=== PATIENT | female | born 1940 | race Caucasian/White ===

== ENCOUNTER 2021-05-02 12:54 | Inpatient (IN) ==
[2021-05-02 13:30] LABS: Basophils # (auto) 0.01 K/uL (0-0.2); Basophils % (auto) 0.1 %; Eosinophils % (auto) 1.1 %; Hematocrit (blood only) 41.3 % (37-47); Hemoglobin 13.5 g/dL (12.0-16.0); Immature Granulocytes # (auto) 0.02 K/uL (0.00-0.02); Immature Granulocytes % (auto) 0.2 %; Lymphocytes # (auto) 1.54 K/uL (1.2-3.4); Lymphocytes % (auto) 17.1 %; Mean Corpuscular Hgb Conc 32.7 g/dL (32-36); Mean Corpuscular Volume 97.9 fL (80-100); Mean Platelet Volume 9.4 fL (7.4-10.4); Monocytes # (auto) 0.72 K/uL (0.11-0.59); Neutrophils # (auto) 6.59 K/uL (1.4-6.5); Neutrophils % (auto) 73.5 %; Platelet Count 265 K/uL (130-400); RDW Coefficient of Variation 13.7 % (11.5-14.5); RDW Standard Deviation 48.7 fL (36.4-46.3); Red Blood Count 4.22 M/uL (4.2-5.4); White Blood Count 8.98 K/uL (4.8-10.8)
[2021-05-02 13:43] LABS: INR 1.1 (0.9-1.1); Partial Thromboplastin Ratio 0.9; Partial Thromboplastin Time 24.8 Seconds (21.0-31.0)
--- NOTE | 2021-05-02 13:43 | XRay Report ---
XR chest 2V PA/lateral HISTORY: 81 years-old Female Chest Pain acute atypical chest pain COMPARISON: None TECHNIQUE: AP and lateral views of the chest FINDINGS: The cardiac silhouette is enlarged. Calcified plaque of the thoracic aorta. No pneumothorax. Small pl eural effusions. Mild pulmonary vascular congestion. Linear subsegmental left basilar opacities. Dege nerative changes of the shoulders and spine. IMPRESSION: 1. Cardiomegaly with pulmonary vascular congestion and small pleural effusions. 2. Mild linear subsegmental atelectasis/scarring of the lingula. ACT 112: Negative or not required by law. The above report was generated using voice recognition software. It may contain grammatical, syntax o r spelling errors. Electronically signed by: Han Roy M.D. 05/02/2021 1:42 PM
[2021-05-02 13:51] LABS: Alanine Aminotransferase 27 (12-78); Aspartate Aminotransferase 19 U/L (15-37); BUN Creatinine Ratio 22.5 (10-20); Blood Urea Nitrogen 12 mg/dl (7-18); Calcium 8.9 mg/dl (8.5-10.1); Carbon Dioxide 27 mmol/L (21-32); Chloride 105 mmol/L (98-107); Est GFR (African American) 103.4 ml/min; Est GFR (Non-African American) 89.2 ml/min; Glucose 131 mg/dl (70-99); Potassium 3.4 mmol/L (3.5-5.1); Sodium 138 mmol/L (136-145)
[2021-05-02 13:56] LABS: Albumin Globulin Ratio 0.7 (0.9-2); Alkaline Phosphatase 68 U/L (45-117); Bilirubin,Total 0.7 mg/dl (0.2-1); Globulin 4.1 gm/dl (2.5-4.0); Total Protein 7.1 gm/dl (6.4-8.2); Troponin I < 0.015 ng/ml (0-0.045)
[2021-05-02] MEDS ORDERED: MoRPHine SULFATE 4 MG/ML 1 ML CARP\\VIAL IV STA (15:35)
--- NOTE | 2021-05-02 15:52 | Emergency Department Note ---
History of Present Illness General Chief complaint: Cardiac Assessment Stated complaint: Cardiac Assessment, DR MARCOS, ANKLE/FOOT PAIN Time Seen by Provider: 05/02/21 15:26 Source: patient and family Mode of arrival: wheelchair Limitations: no limitations History of Present Illness Provider complaint: Possible gout, chest pain and abnormal EKG Maximum Pain Intensity: 5 Treatments prior to arrival: other This is a 81-year-old female who presents with family at bedside due to concern for chest pain and abnormal EKG when she was in her PCPs office this morning. Patient followed up with her PCP after being seen in the ER over the weekend due to concern for right ankle pain, swelling, and redness. She states they thought it was gout. She states she was started on prednisone as well as cephalexin as an antibiotic in case she also had a concurrent infection such as cellulitis. She denies any prior history of gout. Patient denies any recent change in medications. She states she took her prednisone, antibiotic, as well as several doses of Tylenol yesterday evening into the overnight. She states she awoke this morning with pain in her chest. She states it was constant and nonradiating until around noontime today. She believes it was from all the medications that she took. Patient states due to her significant heart history when she reported this to her PCPs office, they performed an EKG which they read as abnormal and she was advised to come immediately to the emergency room. Patient states she did have a stress test and echo in February of this year by her career services coordinator. She states she is anticoagulated. She denies any recent trauma or injury to the right lower extremity. She states x-rays of the right ankle were performed over the weekend during her ER visit. Pt seen during a time of high acuity and national emergency pandemic while wearing PPE. Home Medications Medication Instructions Recorded Confirmed Type Lactobacillus acidophilus 1,000 mmu cells PO BID 05/02/21 05/02/21 History aspirin 81 mg tablet,delayed 81 mg PO DAILY 05/02/21 05/02/21 History release atorvastatin 40 mg tablet 40 mg PO HS 05/02/21 05/02/21 History calcium carbonate 500 mg-vitamin 1 tab PO DAILY 05/02/21 05/02/21 History D3 3.125 mcg (125 unit) tablet cetirizine 10 mg tablet 10 mg PO PM 05/02/21 05/02/21 History coenzyme Q10 100 mg capsule 200 mg PO PM 05/02/21 05/02/21 History (CoQ-10) esomeprazole magnesium 40 mg 40 mg PO DAILY 05/02/21 05/02/21 History capsule,delayed release furosemide 40 mg tablet 40 mg PO DAILY PRN 05/02/21 05/02/21 History glucosamine-chondroitin 250 mg-200 2 tab PO BIDM 05/02/21 05/02/21 History mg tablet (Osteo Bi-Flex) hydroxyzine HCl 25 mg tablet 25 mg PO HS 05/02/21 05/02/21 History levothyroxine 25 mcg tablet 25 mcg PO DAILY 05/02/21 05/02/21 History melatonin 5 mg tablet 5 mg PO HS 05/02/21 05/02/21 History metoprolol succinate 50 mg 125 mg PO DAILY 05/02/21 05/02/21 History tablet,extended release 24 hr montelukast 10 mg tablet 10 mg PO DAILY 05/02/21 05/02/21 History pramipexole 0.25 mg tablet 0.25 mg PO DAILY 05/02/21 05/02/21 History pramipexole 0.25 mg tablet 0.5 mg PO HS 05/02/21 05/02/21 History rivaroxaban 20 mg tablet (Xarelto) 20 mg PO PM 05/02/21 05/02/21 History sacubitril 24 mg-valsartan 26 mg 1 tab PO BID 05/02/21 05/02/21 History tablet (Entresto) trazodone 150 mg tablet 150 mg PO HS 05/02/21 05/02/21 History venlafaxine 75 mg capsule,extended 75 mg PO DAILY 05/02/21 05/02/21 History release 24 hr vitamins A,C,G-wyoi-ocrbpe 7,160 1 tab PO BID 05/02/21 05/02/21 History unit-113 mg-100 unit tablet (PreserVision AREDS) Allergies Allergy/AdvReac Type Severity Reaction Status Date / Time weed pollen Allergy Intermediate Verified 04/19/21 09:08 Past Med/Surg History Medical History Arthritis Atrial fibrillation CHF (congestive heart failure) FHx: cholecystectomy Hyperlipidemia Hypertension Hypothyroid Surgical History (Updated 05/02/21 @ 17:07 by Jessica Gary PA-C) H/O: hysterectomy History of bilateral knee replacement History of cholecystectomy Stented coronary artery Family History Mother Myocardial infarction Father Myocardial infarction Social History (Updated 05/02/21 @ 18:36 by Jessica Gary PA-C) Smoking Status: Never smoker Hx Alcohol Use: No Hx Substance Use: No Preferred Language: Citizen Of [place] Communication Ability: Effective Personnel Recruiter Required: No Beliefs That Will Affect Care: None marital status: Current Living Situation: Spouse current occupational status: retired How many Children do You have: 2 Other Information That Helps Us Care for You: No Feels Safe at Home: Yes Safety Concerns: Feels Safe At This Time caffeine: No Assistive Devices: None Review of Systems A total of 10 systems reviewed and were otherwise negative All systems reviewed & are unremarkable except as noted in HPI & below Physical Exam Vital Signs Vital Signs - 24 hr 05/02/21 13:03 Temperature 36.7 C Temperature Source Temporal Artery Scan Pulse Rate 117 H Pulse Rhythm Regular Respiratory Rate 24 Respiratory Effort / Characteristics Non-Labored Spontaneous Respiratory Depth Normal Blood Pressure 192/73 H Blood Pressure Mean 112 Pulse Oximetry 93 Oxygen Delivery Method Room Air Sepsis Recent Fever Within 48 Hours No Sepsis New/Unexplained Change in Mental Status No Sepsis Action Taken by Nursing No Action Required GENERAL: alert, well appearing, well nourished, no distress, non-toxic EYE EXAM: normal conjunctiva, PERRL and EOM's grossly intact OROPHARYNX: no exudate, no erythema, lips, buccal mucosa, and tongue normal and mucous membranes are moist NECK: supple, no nuchal rigidity, no adenopathy, non-tender LUNGS: Clear to auscultation. Normal chest wall mechanics, no w/r/r HEART: no murmurs, S1 normal and S2 normal ABDOMEN: abdomen soft, non-tender, normo-active bowel sounds, no masses, no rebound or guarding. BACK: Back is symmetrical on inspection and there is no deformity, no midline tenderness, no CVA tenderness. SKIN: no rashes and no bruising, no petechiae UPPER EXTREMITIES: upper extremities are grossly normal. FROM, nml pulses b/l. LOWER EXTREMITIES: No pitting edema LLE. FROM, nml pulses b/l. Right lower extremity with obvious edema and erythema noted to the right ankle extending into the dorsal aspect of the right foot. Erythema overlying both medial and lateral malleoli. Does not appear circumferential. Pain with palpation and with any attempt at movement of the right ankle. NEURO EXAM: Normal sensorium, cranial nerves II-XII grossly intact, normal speech, no gross weakness of arms, no gross weakness of legs. Gross sensation intact. Course Administered Medications Aspirin (Aspirin 81 Mg Ectab) 81 mg PO DAILY ZOEY Stop: 06/02/21 08:59 Last Admin: 05/03/21 09:53 Dose: 81 mg Documented by: [id number] Atorvastatin Calcium (Atorvastatin 40 Mg Tab) 40 mg PO HS ZOEY Stop: 06/01/21 20:59 Last Admin: 05/02/21 22:36 Dose: 40 mg Documented by: [id number] Cetirizine HCl (Cetirizine Hcl 10 Mg Tablet) 10 mg PO PM ZOEY Stop: 06/01/21 20:59 Last Admin: 05/02/21 22:36 Dose: 10 mg Documented by: [id number] Hydroxyzine HCl (Hydroxyzine Hcl 25 Mg Tab) 25 mg PO HS ZOEY Stop: 06/01/21 20:59 Last Admin: 05/02/21 22:36 Dose: 25 mg Documented by: [id number] Lactobacillus Acidoph/Casei/Rhamnos (Advanced Probiotic 1250 Mg Capsule) 2 cap PO BID ZOEY Stop: 06/01/21 20:59 Last Admin: 05/03/21 09:53 Dose: 2 cap Documented by: [id number] Admin: 05/02/21 23:00 Dose: 2 cap Documented by: [id number] Levothyroxine Sodium (Levothyroxine Sodium 25 Mcg Tablet) 25 mcg PO DAILYBB ZOEY Stop: 06/02/21 06:29 Last Admin: 05/03/21 05:30 Dose: 25 mcg Documented by: [id number] Melatonin (Melatonin 3 Mg Tab) 6 mg PO HS ZOEY Stop: 06/01/21 20:59 Last Admin: 05/02/21 22:37 Dose: 6 mg Documented by: [id number] Metoprolol Succinate (Metoprolol Succ 25mg Ext Rel Tab) 125 mg PO DAILY ZOEY Stop: 06/02/21 08:59 Last Admin: 05/03/21 09:52 Dose: 125 mg Documented by: [id number] Montelukast Sodium (Montelukast Sodium 10 Mg Tablet) 10 mg PO DAILY ZOEY Stop: 06/02/21 08:59 Last Admin: 05/03/21 09:52 Dose: 10 mg Documented by: [id number] Morphine Sulfate (Morphine Sulfate 2 Mg/Ml Carp) 2 mg IV Q3H PRN PRN Reason: Severe Pain Stop: 05/16/21 20:08 Last Admin: 05/03/21 09:48 Dose: 2 mg Documented by: [id number] Admin: 05/03/21 01:34 Dose: 2 mg Documented by: [id number] Admin: 05/02/21 20:17 Dose: 2 mg Documented by: [id number] Multivitamins/Minerals (Calcium 600mg + Vit D 400 Iu Tab) 1 tab PO DAILY ZOEY Stop: 06/02/21 08:59 Last Admin: 05/03/21 09:53 Dose: 1 tab Documented by: [id number] Multivitamins/Minerals (Cerovite Adv Formula Tab) 1 tab PO BID ZOEY Stop: 06/01/21 20:59 Last Admin: 05/03/21 09:53 Dose: 1 tab Documented by: [id number] Admin: 05/02/21 23:01 Dose: 1 tab Documented by: [id number] Pantoprazole Sodium (Pantoprazole 40 Mg Tab) 40 mg PO DAILY ZOEY Stop: 06/02/21 08:59 Last Admin: 05/03/21 09:52 Dose: 40 mg Documented by: [id number] Pramipexole Dihydrochloride (Pramipexole Dihydrochlo 0.25 Mg Tab) 0.25 mg PO DAILY ZOEY Stop: 06/02/21 08:59 Last Admin: 05/03/21 09:52 Dose: 0.25 mg Documented by: [id number] Pramipexole Dihydrochloride (Pramipexole Dihydrochlo 0.5 Mg Tab) 0.5 mg PO HS ZOEY Stop: 06/01/21 20:59 Last Admin: 05/02/21 22:38 Dose: 0.5 mg Documented by: [id number] Rivaroxaban (Rivaroxaban 20 Mg Tab) 20 mg PO PM ZOEY Stop: 06/01/21 20:59 Last Admin: 05/02/21 22:39 Dose: 20 mg Documented by: [id number] Sacubitril/Valsartan (Valsartan/Sacubitril 26/24mg Tab) 1 tab PO BID ZOEY Stop: 06/01/21 20:59 Last Admin: 05/03/21 09:53 Dose: 1 tab Documented by: [id number] Admin: 05/02/21 23:01 Dose: 1 tab Documented by: [id number] Tramadol HCl (Tramadol Hcl 50 Mg Tablet) 25 mg PO Q6H PRN PRN Reason: Pain Stop: 06/02/21 01:23 Last Admin: 05/03/21 03:52 Dose: 25 mg Documented by: [id number] Trazodone HCl (Trazodone Hcl 50 Mg Tab) 150 mg PO HS ZOEY Stop: 06/01/21 20:59 Last Admin: 05/02/21 22:39 Dose: 150 mg Documented by: [id number] Venlafaxine HCl (Venlafaxine Hcl Xr 75 Mg Capxr) 75 mg PO DAILY ZOEY Stop: 06/02/21 08:59 Last Admin: 05/03/21 09:52 Dose: 75 mg Documented by: [id number] Discontinued Medications Colchicine (Colchicine 0.6 Mg Tab) 0.6 mg PO NOW ONE Stop: 05/03/21 10:31 Last Admin: 05/03/21 10:51 Dose: 0.6 mg Documented by: [id number] Furosemide (Furosemide Inj 20 Mg/2 Ml Vial) 10 mg IV ONE ONE Stop: 05/02/21 18:47 Last Admin: 05/02/21 20:14 Dose: 10 mg Documented by: [id number] Metoprolol Succinate (Metoprolol Succ 25mg Ext Rel Tab) 125 mg PO NOW STA Stop: 05/02/21 18:06 Last Admin: 05/02/21 18:34 Dose: 125 mg Documented by: [id number] Morphine Sulfate (Morphine Sulfate 4 Mg/Ml 1 Ml Carp\Vial) 4 mg IV NOW STA Stop: 05/02/21 15:36 Last Admin: 05/02/21 16:19 Dose: 4 mg Documented by: [id number] Potassium Chloride (Potassium Chloride Crtab 20 Meq Tabcr) 40 meq PO NOW STA Stop: 05/02/21 18:09 Last Admin: 05/02/21 18:34 Dose: 40 meq Documented by: [id number] Medical Decision Making Differential Diagnosis Differential diagnoses includes but is not limited to acute coronary syndrome, myocardial infarction, pericarditis, pulmonary embolus, aortic dissection, pneumonia, pneumothorax, musculoskeletal, shingles, esophageal, Fracture, subluxation, dislocation, contusion, ligamentous injury, neurovascular, compartment syndrome, rhabdomyolysis, as well as other pathologies. Medical Records Attestation: I reviewed the patient's medical records. Home Medications Current Medication List: was personally reviewed by me Laboratory Data Attestation: I reviewed the patient's lab results. Result diagrams: 05/03/21 07:42 05/03/21 07:42 Lab Results 05/02/21 05/02/21 05/02/21 Range/Units 13:17 13:17 13:17 WBC 8.98 (4.8-10.8) K/uL RBC 4.22 (4.2-5.4) M/uL Hgb 13.5 (12.0-16.0) g/dL Hct 41.3 (37-47) % MCV 97.9 (80-100) fL MCH 32.0 (25-34) pg MCHC 32.7 (32-36) g/dL RDW Std Deviation 48.7 H (36.4-46.3) fL RDW Coeff of Evelyn 13.7 (11.5-14.5) % Plt Count 265 (130-400) K/uL MPV 9.4 (7.4-10.4) fL Immature Gran % (Auto) 0.2 % Neut % (Auto) 73.5 % Lymph % (Auto) 17.1 % Vernon % (Auto) 8.0 % Eos % (Auto) 1.1 % Baso % (Auto) 0.1 % Neut # (Auto) 6.59 H (1.4-6.5) K/uL Lymph # (Auto) 1.54 (1.2-3.4) K/uL Vernon # (Auto) 0.72 H (0.11-0.59) K/uL Eos # (Auto) 0.10 (0-0.5) K/uL Baso # (Auto) 0.01 (0-0.2) K/uL Immature Gran # (Auto) 0.02 (0.00-0.02) K/uL ESR (0-30) mm/hr PT 11.0 (9.0-12.0) Seconds INR 1.1 (0.9-1.1) APTT 24.8 (21.0-31.0) Seconds PTT Ratio 0.9 Sodium 138 (136-145) mmol/L Potassium 3.4 L (3.5-5.1) mmol/L Chloride 105 (98-107) mmol/L Carbon Dioxide 27 (21-32) mmol/L Anion Gap 6.0 (3-11) BUN 12 (7-18) mg/dl Creatinine 0.55 L (0.6-1.2) mg/dl Est Cr Clr Drug Dosing Not Reportable Est GFR ( Amer) 103.4 ml/min Est GFR (Non-Af Amer) 89.2 ml/min BUN/Creatinine Ratio 22.5 H (10-20) Glucose 131 H (70-99) mg/dl Uric Acid 2.7 (2.6-7.2) mg/dl Calcium 8.9 (8.5-10.1) mg/dl Total Bilirubin 0.7 (0.2-1) mg/dl AST 19 (15-37) U/L ALT 27 (12-78) Alkaline Phosphatase 68 (45-117) U/L Troponin I < 0.015 (0-0.045) ng/ml NT-Pro-B Natriuret Pep 1475 (0-1800) pg/ml Total Protein 7.1 (6.4-8.2) gm/dl Albumin 3.0 L (3.4-5.0) gm/dl Globulin 4.1 H (2.5-4.0) gm/dl Albumin/Globulin Ratio 0.7 L (0.9-2) SARS-CoV-2, RNA, NAAT (NEGATIVE) 05/02/21 05/02/21 Range/Units 13:17 17:13 WBC (4.8-10.8) K/uL RBC (4.2-5.4) M/uL Hgb (12.0-16.0) g/dL Hct (37-47) % MCV (80-100) fL MCH (25-34) pg MCHC (32-36) g/dL RDW Std Deviation (36.4-46.3) fL RDW Coeff of Evelyn (11.5-14.5) % Plt Count (130-400) K/uL MPV (7.4-10.4) fL Immature Gran % (Auto) % Neut % (Auto) % Lymph % (Auto) % Vernon % (Auto) % Eos % (Auto) % Baso % (Auto) % Neut # (Auto) (1.4-6.5) K/uL Lymph # (Auto) (1.2-3.4) K/uL Vernon # (Auto) (0.11-0.59) K/uL Eos # (Auto) (0-0.5) K/uL Baso # (Auto) (0-0.2) K/uL Immature Gran # (Auto) (0.00-0.02) K/uL ESR 60 H (0-30) mm/hr PT (9.0-12.0) Seconds INR (0.9-1.1) APTT (21.0-31.0) Seconds PTT Ratio Sodium (136-145) mmol/L Potassium (3.5-5.1) mmol/L Chloride (98-107) mmol/L Carbon Dioxide (21-32) mmol/L Anion Gap (3-11) BUN (7-18) mg/dl Creatinine (0.6-1.2) mg/dl Est Cr Clr Drug Dosing Est GFR ( Amer) ml/min Est GFR (Non-Af Amer) ml/min BUN/Creatinine Ratio (10-20) Glucose (70-99) mg/dl Uric Acid (2.6-7.2) mg/dl Calcium (8.5-10.1) mg/dl Total Bilirubin (0.2-1) mg/dl AST (15-37) U/L ALT (12-78) Alkaline Phosphatase (45-117) U/L Troponin I (0-0.045) ng/ml NT-Pro-B Natriuret Pep (0-1800) pg/ml Total Protein (6.4-8.2) gm/dl Albumin (3.4-5.0) gm/dl Globulin (2.5-4.0) gm/dl Albumin/Globulin Ratio (0.9-2) SARS-CoV-2, RNA, NAAT NEGATIVE (NEGATIVE) Imaging Data Radiologist's Impression: Chest X-Ray 05/02/21 13:09 XR chest 2V PA/lateral HISTORY: 81 years-old Female Chest Pain acute atypical chest pain COMPARISON: None TECHNIQUE: AP and lateral views of the chest FINDINGS: The cardiac silhouette is enlarged. Calcified plaque of the thoracic aorta. No pneumothorax. Small pleural effusions. Mild pulmonary vascular congestion. Linear subsegmental left basilar opacities. Degenerative changes of the shoulders and spine. IMPRESSION: 1. Cardiomegaly with pulmonary vascular congestion and small pleural effusions. 2. Mild linear subsegmental atelectasis/scarring of the lingula. ACT 112: Negative or not required by law. The above report was generated using voice recognition software. It may contain grammatical, syntax or spelling errors. Electronically signed by: Han Roy M.D. 05/02/2021 1:42 PM MDM Narrative This is a 81-year-old lady who presents due to concern for chest pain and right ankle pain. She states she has had ankle pain for several days and was seen in the emergency room in [place] over the weekend with concern for gout. She states she was started on prednisone and also given an antibiotic in case of any evolving cellulitis. She states x-rays were negative at that time. She denies any prior history of gout. States overnight into this morning she did have chest pain which she felt was due to medications that she took. Labs have been drawn and sent and started per protocol as there was no available bed for the patient when she initially arrived. These were resulted in what I spoke with the patient and she was pulled into a triage room for additional evaluation. Due to concern for chest pain in the setting of significant cardiac history and current anticoagulation despite negative troponin and negative EKG as well as worsening pain and edema at the right ankle despite treatment for possible gout, case was discussed with the hospitalist for additional evaluation and management. Patient was still in the waiting room at the time of our discussion for admission as we work towards placing her in an ER bed for the hospitalist to conduct additional evaluation. [facility] did send copies of recent cardiology reports verifying her report of an echo and a stress test in February of this year. We were awaiting additional reports of her ER evaluation in lieu of reordering repeat imaging. I do not suspect septic arthritis. Patient denies any trauma. Patient had no chest pain at the time of my evaluation of her, although chest x-ray does suggest possible evolving pulmonary edema. Patient's exam not consistent with acute volume overload, she denied any difficulty breathing. An order was placed for continuous cardiac monitoring. The monitor shows a rate of _80_ with _normal sinus__ rhythm. Impression & Plan Chest pain, Acute right ankle pain Discharge Plan Visit Data Chief Complaint: Cardiac Assessment Stated Complaint: Cardiac Assessment, DR MARCOS, ANKLE/FOOT PAIN ED Provider: Carol Briceño Discharge Problem: Chest pain, Acute right ankle pain Patient Disposition: Admitted As Inpatient Discharge Instructions Interventions: ED Discharge Assessment Last Done: 05/03/21 00:35 Discharge Problem: Chest pain Qualifiers: Chest pain type: unspecified Qualified Code(s): R07.9 - Chest pain, unspecified
[2021-05-02 16:18] LABS: NT Pro B Type Natriuretic Pept 1475 pg/ml (0-1800); Uric Acid 2.7 mg/dl (2.6-7.2)
[2021-05-02] MEDS ORDERED: METOPROLOL SUCC 25MG EXT REL TAB PO STA (18:05)
[2021-05-02] MEDS ORDERED: POTASSIUM CHLORIDE CRTAB 20 MEQ TABCR PO STA (18:08)
[2021-05-02] MEDS ORDERED: FUROSEMIDE INJ 20 MG/2 ML VIAL IV ONE (18:46)
--- NOTE | 2021-05-02 18:46 | History & Physical Report ---
Date of Service May 02, 2021 Assessment & Plan (1) Right foot pain: (2) Chest pain: Plan: This is a 81-year-old female who has significant past medical history of CAD with history of stenting, persistent atrial fibrillation, RLS, insomnia, CHF, HTN, HLD, hypothyroidism who presents to ED after complaining of right foot pain x3 days and chest pain x1 day. Right foot pain/swelling and redness x 3 days Was seen and eval at [place] [facility] - awaiting records, dx with GOUT and prescribed prednisone, indomethacin and keflex for ? cellulitis pt w/o improvement obtain CT R Foot/ankle RLE venous doppler await results of imaging before further tx, will d/c prednisone and indomethacin at this time given no improvement No evidence of infection - but again wait for current imaging - hold on antibiotics at this time elevate lower ext, ice PT/OT PRN analgesia Chest Pain CAD w/ hx of stent Afib CHF Cp reported after taking 5 extra strength tylenol, likely esophageal spasm, vs gerd, vs anx cycle troponins for completeness obtain echocardiogram records requested from OSH unknown baseline EF continue metoprolol, Entresto, ASA, atorvastatin, Xarelto Currently patient tachycardic, likely secondary to missed dose of oral metoprolol, give Toprol 125mg x 1 now CXR with evidence of pulm vasc congestion possible in setting of HTN Urgency - give Lasix x 1 now Insomnia continue melatonin, trazodone, hydroxyzine RLS continue mirapex DVT ppx: Xarelto Dispo: med tele; can likely downgrade to med/surg when cardiac source of CP ruled out PCP: Dr. Reese, of [place] FULL CODE PT was seen and examined in collaboration with Dr. Valencia, please see addendum The chart was completed utilizing [employer] Speech voice recognition software. Grammatical errors, random word insertions, pronoun errors, and incomplete sentences are an occasional consequence of this system due to software limitations, ambient noise, and hardware issues. Any formal questions or concerns about the content, text, or information contained within the body of this dictation should be directly addressed to the provider for clarification. History of Present Illness Chief Complaint: R foot pain x 3 days; CP x 1 day. Primary Care Provider: Jose Angel Reese M.D. This is a 81-year-old female who has significant past medical history of CAD with history of stenting, persistent atrial fibrillation, RLS, insomnia, CHF, HTN, HLD, hypothyroidism who presents to ED after complaining of right foot pain x3 days and chest pain x1 day. Of significance patient was seen in [place] [facility] over the weekend and records are still pending from this visit. She states that she presented to ED due to right foot pain. She was diagnosed with acute gout, prescribed prednisone, indomethacin and Keflex. She has not noticed any improvement in regards to pain of her right foot, is having inability to walk and denies any improvement in redness or swelling. Typically she ambulates without assist device at baseline, but is currently having difficulty getting out of chair due to pain. Today pain was so severe that she took 5 extra strength Tylenol. After taking the Tylenol she felt, "funny in her chest," and had a burning sensation. She called PCP in regards to the chest sensation and was told to go to ER for further evaluation. She was brought to ER with her daughter who is currently at bedside. Daughter does help patient take her medications. She did not take any medications today. She denies any fever, chills, sweats, lightheadedness, dizziness, shortness of breath, edie chest pain, nausea, vomiting, abdominal pain, change in bowel or urinary habits. Her appetite and weight has been stable. She is prescribed Lasix to take as needed but has not currently required. She states she typically takes it twice a week. In ED she remained hemodynamically stable. Her blood pressure was significantly elevated likely due to not taking meds and pain. Her CBC and CMP was generally unremarkable. Her chest x-ray revealed cardiomegaly with pulmonary vascular congestion small pleural effusions. She did receive IV morphine in ED which improved pain. She is currently chest pain-free and has been since arrival. Allergies Allergy/AdvReac Type Severity Reaction Status Date / Time weed pollen Allergy Intermediate Verified 04/19/21 09:08 Home Medications Medication Instructions Recorded Confirmed Type Lactobacillus acidophilus 1,000 mmu cells PO BID 05/02/21 05/02/21 History aspirin 81 mg tablet,delayed 81 mg PO DAILY 05/02/21 05/02/21 History release atorvastatin 40 mg tablet 40 mg PO HS 05/02/21 05/02/21 History calcium carbonate 500 mg-vitamin 1 tab PO DAILY 05/02/21 05/02/21 History D3 3.125 mcg (125 unit) tablet cetirizine 10 mg tablet 10 mg PO PM 05/02/21 05/02/21 History coenzyme Q10 100 mg capsule 200 mg PO PM 05/02/21 05/02/21 History (CoQ-10) esomeprazole magnesium 40 mg 40 mg PO DAILY 05/02/21 05/02/21 History capsule,delayed release furosemide 40 mg tablet 40 mg PO DAILY PRN 05/02/21 05/02/21 History glucosamine-chondroitin 250 mg-200 2 tab PO BIDM 05/02/21 05/02/21 History mg tablet (Osteo Bi-Flex) hydroxyzine HCl 25 mg tablet 25 mg PO HS 05/02/21 05/02/21 History levothyroxine 25 mcg tablet 25 mcg PO DAILY 05/02/21 05/02/21 History melatonin 5 mg tablet 5 mg PO HS 05/02/21 05/02/21 History metoprolol succinate 50 mg 125 mg PO DAILY 05/02/21 05/02/21 History tablet,extended release 24 hr montelukast 10 mg tablet 10 mg PO DAILY 05/02/21 05/02/21 History pramipexole 0.25 mg tablet 0.25 mg PO DAILY 05/02/21 05/02/21 History pramipexole 0.25 mg tablet 0.5 mg PO HS 05/02/21 05/02/21 History rivaroxaban 20 mg tablet (Xarelto) 20 mg PO PM 05/02/21 05/02/21 History sacubitril 24 mg-valsartan 26 mg 1 tab PO BID 05/02/21 05/02/21 History tablet (Entresto) trazodone 150 mg tablet 150 mg PO HS 05/02/21 05/02/21 History venlafaxine 75 mg capsule,extended 75 mg PO DAILY 05/02/21 05/02/21 History release 24 hr vitamins A,C,J-vbgd-tcazwz 7,160 1 tab PO BID 05/02/21 05/02/21 History unit-113 mg-100 unit tablet (PreserVision AREDS) Past Med/Surg History Medical History Arthritis Atrial fibrillation CHF (congestive heart failure) FHx: cholecystectomy Hyperlipidemia Hypertension Hypothyroid Surgical History (Updated 05/02/21 @ 17:07 by Jessica Gary PA-C) H/O: hysterectomy History of bilateral knee replacement History of cholecystectomy Stented coronary artery Family History Mother Myocardial infarction Father Myocardial infarction Social History (Updated 05/02/21 @ 18:36 by Jessica Gary PA-C) Smoking Status: Never smoker Hx Alcohol Use: No Hx Substance Use: No Preferred Language: Arabic Communication Ability: Effective 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 marital status: Current Living Situation: Spouse current occupational status: retired How many Children do You have: 4 Feels Safe at Home: Yes caffeine: No Review of Systems Review of Systems: All systems reviewed & are unremarkable except as noted in HPI & below Physical Exam Physical Exam: Please refer to attending addendum for physical exam findings Results & Data Results & Data ([facility]) Vital Signs (Past 12 Hours) Vital Signs Temp Pulse Pulse Resp BP BP Pulse Ox 05/02/21 18:18 37.4 C 122 H 26 H 177/74 H 94 05/02/21 13:03 36.7 C 117 H 24 192/73 H 93 Diagnostic Findings Chest X-Ray 05/02/21 13:09 XR chest 2V PA/lateral HISTORY: 81 years-old Female Chest Pain acute atypical chest pain COMPARISON: None TECHNIQUE: AP and lateral views of the chest FINDINGS: The cardiac silhouette is enlarged. Calcified plaque of the thoracic aorta. No pneumothorax. Small pleural effusions. Mild pulmonary vascular congestion. Linear subsegmental left basilar opacities. Degenerative changes of the shoulders and spine. IMPRESSION: 1. Cardiomegaly with pulmonary vascular congestion and small pleural effusions. 2. Mild linear subsegmental atelectasis/scarring of the lingula. ACT 112: Negative or not required by law. The above report was generated using voice recognition software. It may contain grammatical, syntax or spelling errors. Electronically signed by: Han Roy M.D. 05/02/2021 1:42 PM Medications Administered Medication List Discontinued Medications Metoprolol Succinate (Metoprolol Succ 25mg Ext Rel Tab) 125 mg PO NOW STA Stop: 05/02/21 18:06 Last Admin: 05/02/21 18:34 Dose: 125 mg Documented by: [id number] Morphine Sulfate (Morphine Sulfate 4 Mg/Ml 1 Ml Carp\\Vial) 4 mg IV NOW STA Stop: 05/02/21 15:36 Last Admin: 05/02/21 16:19 Dose: 4 mg Documented by: [id number] Potassium Chloride (Potassium Chloride Crtab 20 Meq Tabcr) 40 meq PO NOW STA Stop: 05/02/21 18:09 Last Admin: 05/02/21 18:34 Dose: 40 meq Documented by: [id number] ECG Rate (beats per minute): 115 Rhythm: atrial fibrillation COVID-19 Results Results COVID-19 Adm Lab Results: RBC 4.22 M/uL (4.2-5.4) 05/02/21 WBC 8.98 K/uL (4.8-10.8) 05/02/21 Hgb 13.5 g/dL (12.0-16.0) 05/02/21 Hct 41.3 % (37-47) 05/02/21 Plt Count 265 K/uL (130-400) 05/02/21 Neutrophils (%) (Auto) 73.5 % 05/02/21 Lymphocytes (%) (Auto) 17.1 % 05/02/21 Monocytes # (Auto) 0.72 K/uL (0.11-0.59) H 05/02/21 Eosinophils # (Auto) 0.10 K/uL (0-0.5) 05/02/21 Immature Granulocyte % (Auto) 0.2 % 05/02/21 Neutrophils # (Auto) 6.59 K/uL (1.4-6.5) H 05/02/21 Lymphocytes # (Auto) 1.54 K/uL (1.2-3.4) 05/02/21 Monocytes # (Auto) 0.72 K/uL (0.11-0.59) H 05/02/21 Eosinophils # (Auto) 0.10 K/uL (0-0.5) 05/02/21 Basophils # (Auto) 0.01 K/uL (0-0.2) 05/02/21 Immature Granulocyte # (Auto) 0.02 K/uL (0.00-0.02) 05/02/21 Na 138 mmol/L (136-145) 05/02/21 K 3.4 mmol/L (3.5-5.1) L 05/02/21 Cl 105 mmol/L (98-107) 05/02/21 CO2 27 mmol/L (21-32) 05/02/21 Anion Gap 6.0 (3-11) 05/02/21 BUN 12 mg/dl (7-18) 05/02/21 Creatinine 0.55 mg/dl (0.6-1.2) L 05/02/21 BUN/Creatinine Ratio 22.5 (10-20) H 05/02/21 Glucose Level 131 mg/dl (70-99) H 05/02/21 Ca 8.9 mg/dl (8.5-10.1) 05/02/21 Total Bilirubin 0.7 mg/dl (0.2-1) 05/02/21 AST/SGOT 19 U/L (15-37) 05/02/21 ALT/SGPT 27 (12-78) 05/02/21 Alkaline Phosphatase 68 U/L (45-117) 05/02/21 Total Protein 7.1 gm/dl (6.4-8.2) 05/02/21 Albumin 3.0 gm/dl (3.4-5.0) L 05/02/21 Globulin 4.1 gm/dl (2.5-4.0) H 05/02/21 Albumin/Globulin Ratio 0.7 (0.9-2) L 05/02/21 Troponin I < 0.015 ng/ml (0-0.045) 05/02/21 JF-Uxr-A-Type Natriuretic Pep 1475 pg/ml (0-1800) 05/02/21 CRP 17.60 mg/dl (0-0.29) H 05/02/21 PTT 24.8 Seconds (21.0-31.0) 05/02/21 INR 1.1 (0.9-1.1) 05/02/21 SARS-CoV-2, RNA, NAAT NEGATIVE (NEGATIVE) 05/02/21 Chest X-Ray 05/02/21 Code Status & VTE Plan Code Status FULL CODE VTE Prophylaxis Plan VTE Prophylaxis will be ordered: No Supervising Physician Co-Signing Physician Notes Pt is a 81 y/o F with hx of possible HFrEF, Afib on xarelto, Insomnia, HTN, CAD s/p stent, HLD, R TKR admitted for chest pain, and R ankle pain/swelling Exam: Mild distress due to pain Lungs: CTA, no wheezing or crackles Cardiac: normal S1/S2, no murmur Abd: Soft, ND, NT MSK: no swelling on the L leg, diffuse swelling of the R foot, ankle and distal leg; it is warm and TTP Psych: AAOx3 A/P: R ankle/Foot/distal leg swelling and pain: -pt has taken 3 days of prednisone w/o any improvement -will get CT ankle to r/o any fracture - RLE doppler -not suspecting septic arthritis - for now will do pain management with prn morphine - PT/OT referral Chest pain: -trop neg -CXR showed pulm edema ---- will do IV Lasix 10mg today ---- echo HTN: -will start the pt on home meds for now Agree with Jessica Gary PA-C
--- NOTE | 2021-05-02 19:04 | Ultrasound Report ---
RIGHT LOWER EXTREMITY VENOUS DOPPLER HISTORY: Right leg edema COMPARISON STUDY: None. FINDINGS: There is normal compressibility, flow, and augmentation within the right lower extremity de ep venous system. IMPRESSION: No DVT within the right lower extremity ACT 112: Negative or not required by law. Electronically signed by: Patrice Lockett M.D. 05/02/2021 7:03 PM
[2021-05-02 19:05] LABS: Troponin I < 0.015 ng/ml (0-0.045)
[2021-05-02] MEDS ORDERED: ACETAMINOPHEN 325 MG TAB PO PRN (20:09)
[2021-05-02] MEDS ORDERED: oxyCODONE HCL IR 5 MG TAB (IMMEDIATE RELEASE) PO PRN (20:09)
[2021-05-02] MEDS ORDERED: POLYETHYLENE (MIRALAX) 17 GM PACK PO PRN (20:09)
[2021-05-02] MEDS ORDERED: ALUMINUM/MAGNESIUM SUSP 30 ML UDC PO PRN (20:09)
[2021-05-02] MEDS ORDERED: ONDANSETRON INJ 2 MG/ML 2 ML VIAL IV PRN (20:09)
[2021-05-02] MEDS ORDERED: MAGNESIUM HYDROXIDE SUSP 30 ML UDC PO PRN (20:09)
--- NOTE | 2021-05-02 20:16 | CT Scan Report ---
RIGHT ANKLE CT, RIGHT FOOT CT CT DOSE: 255.60 mGy.cm HISTORY: Right ankle and foot pain, edema, redness TECHNIQUE: Multiaxial CT images of the right ankle and right foot were performed and reformatted in t he sagittal and coronal plane without the use of contrast. A dose lowering technique was utilized ad ana maría to the principles of ALARA. COMPARISON: None. FINDINGS: Extensive subcutaneous edema seen throughout the right ankle and right foot. No loculated f luid collections on this noncontrast study to suggest an abscess. Vascular calcifications are noted. The Achilles, flexor, extensor, and peroneal tendons appear grossly intact by CT. No acute fracture o r dislocation within the right ankle or right foot. Mild degenerative changes seen within the tibiota lar joint and throughout the majority of the foot. No destructive changes to suggest an osteomyelitis . IMPRESSION: 1. Extensive subcutaneous edema seen throughout the right ankle and foot. 2. No fracture or dislocation. 3. No evidence for osteomyelitis. 4. Mild osteoarthritis. ACT 112: Negative or not required by law. Electronically signed by: Patrice Lockett M.D. 05/02/2021 8:15 PM
[2021-05-02] MEDS: MoRPHine SULFATE 2 MG/ML CARP IV PRN (20:17)
[2021-05-02] MEDS ORDERED: NON-FORMULARY MEDICATION (Coenzyme Q10 [Coq-10] 100 mg Capsule) PO SCH (21:00)
[2021-05-02] MEDS: CETIRIZINE HCL 10 MG TABLET PO SCH (22:36)
[2021-05-02] MEDS: ATORVASTATIN 40 MG TAB PO SCH (22:36)
[2021-05-02] MEDS: hydrOXYzine HCl 25 MG TAB PO SCH (22:36)
[2021-05-02] MEDS: MELATONIN 3 MG TAB PO SCH (22:37)
[2021-05-02] MEDS: PRAMIPEXOLE DIHYDROCHLO 0.5 MG TAB PO SCH (22:38)
[2021-05-02] MEDS: traZODone HCL 50 MG TAB PO SCH (22:39)
[2021-05-02] MEDS: RIVAROXABAN 20 MG TAB PO SCH (22:39)
[2021-05-02] MEDS: ADVANCED PROBIOTIC 1250 MG CAPSULE PO SCH (23:00)
[2021-05-02] MEDS: CEROVITE ADV FORMULA TAB PO SCH (23:01)
[2021-05-02] MEDS: VALSARTAN/SACUBITRIL 26/24MG TAB PO SCH (23:01)
[2021-05-03] MEDS: MoRPHine SULFATE 2 MG/ML CARP IV PRN ×3 (01:34→16:41)
[2021-05-03] MEDS: traMADol HCL 50 MG TABLET PO PRN ×2 (03:52→21:09)
[2021-05-03] MEDS: LEVOTHYROXINE SODIUM 25 MCG TABLET PO SCH (05:30)
[2021-05-03 08:21] LABS: Basophils # (auto) 0.02 K/uL (0-0.2); Basophils % (auto) 0.2 %; Eosinophils # (auto) 0.07 K/uL (0-0.5); Eosinophils % (auto) 0.7 %; Hematocrit (blood only) 37.4 % (37-47); Hemoglobin 12.3 g/dL (12.0-16.0); Immature Granulocytes # (auto) 0.02 K/uL (0.00-0.02); Immature Granulocytes % (auto) 0.2 %; Lymphocytes # (auto) 1.24 K/uL (1.2-3.4); Lymphocytes % (auto) 11.8 %; Mean Corpuscular Hemoglobin 31.7 pg (25-34); Mean Corpuscular Hgb Conc 32.9 g/dL (32-36); Mean Corpuscular Volume 96.4 fL (80-100); Mean Platelet Volume 9.4 fL (7.4-10.4); Monocytes # (auto) 0.97 K/uL (0.11-0.59); Monocytes % (auto) 9.2 %; Neutrophils # (auto) 8.18 K/uL (1.4-6.5); Neutrophils % (auto) 77.9 %; Platelet Count 231 K/uL (130-400); RDW Coefficient of Variation 13.8 % (11.5-14.5); RDW Standard Deviation 48.7 fL (36.4-46.3); Red Blood Count 3.88 M/uL (4.2-5.4)
[2021-05-03 08:57] LABS: Albumin Globulin Ratio 0.6 (0.9-2); Albumin Level 2.4 gm/dl (3.4-5.0); BUN Creatinine Ratio 21.8 (10-20); Calcium 8.1 mg/dl (8.5-10.1); Creatinine Clr Calc Pharmacy 99.4 ml/min; Est GFR (African American) 109.7 ml/min; Est GFR (Non-African American) 94.6 ml/min; Globulin 3.9 gm/dl (2.5-4.0); Total Protein 6.3 gm/dl (6.4-8.2)
[2021-05-03] MEDS: METOPROLOL SUCC 25MG EXT REL TAB PO SCH (09:52)
[2021-05-03] MEDS: PRAMIPEXOLE DIHYDROCHLO 0.25 MG TAB PO SCH (09:52)
[2021-05-03] MEDS: PANTOprazole 40 MG TAB PO SCH (09:52)
[2021-05-03] MEDS: VENLAFAXINE HCL XR 75 MG CAPXR PO SCH (09:52)
[2021-05-03] MEDS: MONTELUKAST SODIUM 10 MG TABLET PO SCH (09:52)
[2021-05-03] MEDS: CALCIUM 600MG + VIT D 400 IU TAB PO SCH (09:53)
[2021-05-03] MEDS: ASPIRIN 81 MG ECTAB PO SCH (09:53)
[2021-05-03] MEDS: CEROVITE ADV FORMULA TAB PO SCH ×2 (09:53→21:11)
[2021-05-03] MEDS: ADVANCED PROBIOTIC 1250 MG CAPSULE PO SCH ×2 (09:53→21:10)
[2021-05-03] MEDS: VALSARTAN/SACUBITRIL 26/24MG TAB PO SCH ×2 (09:53→21:12)
[2021-05-03] MEDS ORDERED: COLCHICINE 0.6 MG TAB PO ONE ×2 (10:30→13:08)
--- NOTE | 2021-05-03 14:36 | Hospitalist Progress Note ---
Date of Service May 03, 2021 Assessment & Plan (1) Right foot pain: Plan: Likely gout and to rule out septic arthritis Right foot pain/swelling and redness x 3 days Was seen and eval at [place] [facility] - awaiting records, dx with GOUT and prescribed prednisone, indomethacin and keflex for ? cellulitis pt w/o improvement obtain CT R Foot/ankle-soft tissue swelling without any abscess or osteomyelitis RLE venous doppler-negative for any thrombosis No evidence of infection - but again wait for current imaging - hold on antibiotics at this time ESR is high at 60 and CRP is high at 17 Will start colchicine smaller doses given cardiac history and on beta-roxi. Cannot use any NSAID is as on Xarelto. Steroid will be used if suspicion for septic arthritis is ruled out Orthopedic has been consulted for further evaluation She has been getting better on colchicine (2) Chest pain: Plan: This is a 81-year-old female who has significant past medical history of CAD with history of stenting, persistent atrial fibrillation, RLS, insomnia, CHF, HTN, HLD, hypothyroidism who presents to ED after complaining of right foot pain x3 days and chest pain x1 day. Chest Pain CAD w/ hx of stent Afib CHF Cp reported after taking 5 extra strength tylenol, likely esophageal spasm, vs gerd, vs anx Cycle troponins for completeness-remain unremarkable EKG unremarkable and echo is Continue metoprolol, Entresto, ASA, atorvastatin, Xarelto CXR with evidence of pulm vasc congestion possible in setting of HTN Urgency - give Lasix x 1 now Denies any more chest pain and/or palpitation Insomnia continue melatonin, trazodone, hydroxyzine RLS continue mirapex DVT ppx: Xarelto Dispo: med tele; can likely downgrade to med/surg when cardiac source of CP ruled out PCP: Dr. Reese, of [place] FULL CODE Admission and Anticipated Discharge Date Admission Date: May 02, 2021 Subjective 05/03/2021 The patient was seen and examined in medical telemetry unit She has been complaining of right ankle pain with swelling and redness for the last 3 days She woke up with pain and the condition has been getting worse Denies any history of trauma and denies any fever and/or chills. No nausea and or vomiting Review of Systems Review of Systems: All systems reviewed and are unremarkable except as mentioned below Musculoskeletal: Severe pain involving the right ankle with swelling, redness and tenderness Physical Exam Physical Exam: Lying in bed with discomfort secondary to right foot pain Constitutional: well developed, well nourished, + ill appearing and average body habitus Eyes: PERRL, conjunctivae normal, anicteric sclerae ENMT: external ear and nose normal, oropharynx normal Neck: trachea midline, no thyromegaly Respiratory: no respiratory distress Auscultation: lungs clear to auscultation bilaterally Cardiovascular: Rate/Rhythm: regular rate and regular rhythm; not tachycardic Heart Sounds: normal S1 and normal S2; no murmur Extremities: + edema (Right foot and ankle) Gastrointestinal (Abdomen): Inspection/Auscultation: normal bowel sounds; abdomen not distended Percussion/Palpation: abdomen soft; abdomen nontender Musculoskeletal: Ankle: + ankle abnormal to inspection (Right ankle is swollen, redness, increased local temperature and tenderness) and + joint line tenderness (ankle) (Any movement is extremely painful) Neurologic: Alert, awake and oriented x3. No focal sensory and motor deficit appreciated Lymphatic: no cervical or axillary lymphadenopathy Results & Data Results & Data ([facility]) Vital Signs (Past 12 Hours) Vital Signs Temp Pulse Resp BP Pulse Ox 05/03/21 12:11 36.7 C 85 22 141/60 H 92 05/03/21 08:09 37.8 C H 96 H 17 139/71 90 05/03/21 04:00 36.6 C 90 18 166/67 H 94 Laboratory Results Short CBC 05/03/21 Range/Units 07:42 WBC 10.50 (4.8-10.8) K/uL Hgb 12.3 (12.0-16.0) g/dL Hct 37.4 (37-47) % Plt Count 231 (130-400) K/uL BMP 05/03/21 07:42 Sodium 138 Potassium 4.0 D Chloride 104 Carbon Dioxide 26 BUN 10 Creatinine 0.46 L Glucose 121 H Calcium 8.1 L Cardiac Enzymes 05/02/21 05/03/21 Range/Units 18:30 00:15 Troponin I < 0.015 < 0.015 (0-0.045) ng/ml Liver Function 05/03/21 Range/Units 07:42 Total Bilirubin 1.0 (0.2-1) mg/dl AST 22 (15-37) U/L ALT 27 (12-78) Alkaline Phosphatase 63 (45-117) U/L Albumin 2.4 L (3.4-5.0) gm/dl Medications Administered Current Inpatient Medications Acetaminophen (Acetaminophen 325 Mg Tab) 650 mg PO Q4H PRN PRN Reason: Pain or Fever Stop: 06/01/21 20:08 Al Hydrox/Mg Hydrox/Simethicone (Aluminum/Magnesium Susp 30 Ml Udc) 15 ml PO Q4H PRN PRN Reason: Dyspepsia Stop: 06/01/21 20:08 Aspirin (Aspirin 81 Mg Ectab) 81 mg PO DAILY [facility] Stop: 06/02/21 08:59 Last Admin: 05/03/21 09:53 Dose: 81 mg Documented by: Atorvastatin Calcium (Atorvastatin 40 Mg Tab) 40 mg PO HS [facility] Stop: 06/01/21 20:59 Last Admin: 05/02/21 22:36 Dose: 40 mg Documented by: Cetirizine HCl (Cetirizine Hcl 10 Mg Tablet) 10 mg PO PM [facility]OEY Stop: 06/01/21 20:59 Last Admin: 05/02/21 22:36 Dose: 10 mg Documented by: Hydroxyzine HCl (Hydroxyzine Hcl 25 Mg Tab) 25 mg PO HS [facility] Stop: 06/01/21 20:59 Last Admin: 05/02/21 22:36 Dose: 25 mg Documented by: Lactobacillus Acidoph/Casei/Rhamnos (Advanced Probiotic 1250 Mg Capsule) 2 cap PO BID [facility]OEY Stop: 06/01/21 20:59 Last Admin: 05/03/21 09:53 Dose: 2 cap Documented by: Levothyroxine Sodium (Levothyroxine Sodium 25 Mcg Tablet) 25 mcg PO DAILYBB [facility]OE[facility] Stop: 06/02/21 06:29 Last Admin: 05/03/21 05:30 Dose: 25 mcg Documented by: Magnesium Hydroxide (Magnesium Hydroxide Susp 30 Ml Udc) 30 ml PO Q12H PRN PRN Reason: Constipation Stop: 06/01/21 20:08 Melatonin (Melatonin 3 Mg Tab) 6 mg PO HS [facility] Stop: 06/01/21 20:59 Last Admin: 05/02/21 22:37 Dose: 6 mg Documented by: Metoprolol Succinate (Metoprolol Succ 25mg Ext Rel Tab) 125 mg PO DAILY [facility] Stop: 06/02/21 08:59 Last Admin: 05/03/21 09:52 Dose: 125 mg Documented by: Montelukast Sodium (Montelukast Sodium 10 Mg Tablet) 10 mg PO DAILY [facility] Stop: 06/02/21 08:59 Last Admin: 05/03/21 09:52 Dose: 10 mg Documented by: Morphine Sulfate (Morphine Sulfate 2 Mg/Ml Carp) 2 mg IV Q3H PRN PRN Reason: Severe Pain Stop: 05/16/21 20:08 Last Admin: 05/03/21 09:48 Dose: 2 mg Documented by: Multivitamins/Minerals (Calcium 600mg + Vit D 400 Iu Tab) 1 tab PO DAILY [facility]OEY Stop: 06/02/21 08:59 Last Admin: 05/03/21 09:53 Dose: 1 tab Documented by: Multivitamins/Minerals (Cerovite Adv Formula Tab) 1 tab PO BID [facility]OE[facility] Stop: 06/01/21 20:59 Last Admin: 05/03/21 09:53 Dose: 1 tab Documented by: Ondansetron HCl (Ondansetron Inj 2 Mg/Ml 2 Ml Vial) 4 mg IV Q6H PRN PRN Reason: Nausea Stop: 06/01/21 20:08 Pantoprazole Sodium (Pantoprazole 40 Mg Tab) 40 mg PO DAILY [facility] Stop: 06/02/21 08:59 Last Admin: 05/03/21 09:52 Dose: 40 mg Documented by: Polyethylene Glycol (Polyethylene (Miralax) 17 Gm Pack) 17 gm PO DAILY PRN PRN Reason: Constipation Stop: 06/01/21 20:08 Pramipexole Dihydrochloride (Pramipexole Dihydrochlo 0.25 Mg Tab) 0.25 mg PO DAILY [facility] Stop: 06/02/21 08:59 Last Admin: 05/03/21 09:52 Dose: 0.25 mg Documented by: Pramipexole Dihydrochloride (Pramipexole Dihydrochlo 0.5 Mg Tab) 0.5 mg PO HS [facility] Stop: 06/01/21 20:59 Last Admin: 05/02/21 22:38 Dose: 0.5 mg Documented by: Rivaroxaban (Rivaroxaban 20 Mg Tab) 20 mg PO PM [facility] Stop: 06/01/21 20:59 Last Admin: 05/02/21 22:39 Dose: 20 mg Documented by: Sacubitril/Valsartan (Valsartan/Sacubitril 26/24mg Tab) 1 tab PO BID [facility] Stop: 06/01/21 20:59 Last Admin: 05/03/21 09:53 Dose: 1 tab Documented by: Tramadol HCl (Tramadol Hcl 50 Mg Tablet) 25 mg PO Q6H PRN PRN Reason: Pain Stop: 06/02/21 01:23 Last Admin: 05/03/21 03:52 Dose: 25 mg Documented by: Trazodone HCl (Trazodone Hcl 50 Mg Tab) 150 mg PO HS [facility] Stop: 06/01/21 20:59 Last Admin: 05/02/21 22:39 Dose: 150 mg Documented by: Venlafaxine HCl (Venlafaxine Hcl Xr 75 Mg Capxr) 75 mg PO DAILY [facility] Stop: 06/02/21 08:59 Last Admin: 05/03/21 09:52 Dose: 75 mg Documented by: (1) Chest pain Chest pain type: unspecified Qualified Code(s): R07.9 - Chest pain, unspecified
--- NOTE | 2021-05-03 15:44 | Orthopedic Consultation ---
Date of Consultation May 03, 2021 Assessment & Plan (1) Acute right ankle pain: X-rays reviewed by myself. Plain films not showing any signs of osteomyelitis but noting diffuse soft tissue swelling. CT scan also noting diffuse soft tissue swelling around the foot and ankle with no evidence of osteomyelitis. No mention of any increased fluid collection in the joint. As sensitive as she is over the areas of erythema, I am thinking this is possibly a cellulitis with question of joint involvement. She was only on her indomethacin and prednisone for 2 to 3 days with no significant improvement. Uric acid yesterday was 2.7. ESR and CRP are elevated. I will discuss the case with Dr. Lopez. I will also order an MRI with contrast to rule out septic joint/tendinous involvement. If notable fluid collection in the joint, she may need an aspiration of the ankle joint. History of Present Illness Reason for Consultation: Right ankle pain Attending Physician: Destiny Santana MD History of Present Illness He 11-year-old white female who was admitted by [facility] hospitalist service for right ankle pain for 3 days. Patient is accompanied by her daughter who both give an account of what she has been going through. She apparently began having pain on in the right ankle. She was having increasing difficulty in ambulating and went to [facility] emergency room where she was diagnosed with gout. She was given prescriptions for prednisone, indomethacin, and Keflex for questionable cellulitis. Her daughter states that she has been taking his medications for only 3 days. She noticed no significant improvement and continued to have the moderate to severe pain in the right ankle with erythema. She finally came into the hospital here at [facility] and was admitted by the hospitalist service. She denies any nausea or vomiting, fevers, chills. Of note, her daughter states that her mother had a infection of her left lower extremity in the recent past that was MRSA. She has also had a urinary tract infection within the last 2 months as well. We have been asked to see her for her right ankle pain. Allergies Allergy/AdvReac Type Severity Reaction Status Date / Time weed pollen Allergy Intermediate Verified 04/19/21 09:08 Home Medications Medication Instructions Recorded Confirmed Type Lactobacillus acidophilus 1,000 mmu cells PO BID 05/02/21 05/02/21 History aspirin 81 mg tablet,delayed 81 mg PO DAILY 05/02/21 05/02/21 History release atorvastatin 40 mg tablet 40 mg PO HS 05/02/21 05/02/21 History calcium carbonate 500 mg-vitamin 1 tab PO DAILY 05/02/21 05/02/21 History D3 3.125 mcg (125 unit) tablet cetirizine 10 mg tablet 10 mg PO PM 05/02/21 05/02/21 History coenzyme Q10 100 mg capsule 200 mg PO PM 05/02/21 05/02/21 History (CoQ-10) esomeprazole magnesium 40 mg 40 mg PO DAILY 05/02/21 05/02/21 History capsule,delayed release furosemide 40 mg tablet 40 mg PO DAILY PRN 05/02/21 05/02/21 History glucosamine-chondroitin 250 mg-200 2 tab PO BIDM 05/02/21 05/02/21 History mg tablet (Osteo Bi-Flex) hydroxyzine HCl 25 mg tablet 25 mg PO HS 05/02/21 05/02/21 History levothyroxine 25 mcg tablet 25 mcg PO DAILY 05/02/21 05/02/21 History melatonin 5 mg tablet 5 mg PO HS 05/02/21 05/02/21 History metoprolol succinate 50 mg 125 mg PO DAILY 05/02/21 05/02/21 History tablet,extended release 24 hr montelukast 10 mg tablet 10 mg PO DAILY 05/02/21 05/02/21 History pramipexole 0.25 mg tablet 0.25 mg PO DAILY 05/02/21 05/02/21 History pramipexole 0.25 mg tablet 0.5 mg PO HS 05/02/21 05/02/21 History rivaroxaban 20 mg tablet (Xarelto) 20 mg PO PM 05/02/21 05/02/21 History sacubitril 24 mg-valsartan 26 mg 1 tab PO BID 05/02/21 05/02/21 History tablet (Entresto) trazodone 150 mg tablet 150 mg PO HS 05/02/21 05/02/21 History venlafaxine 75 mg capsule,extended 75 mg PO DAILY 05/02/21 05/02/21 History release 24 hr vitamins A,C,L-svoq-mapmfy 7,160 1 tab PO BID 05/02/21 05/02/21 History unit-113 mg-100 unit tablet (PreserVision AREDS) Patient History Medical History Arthritis Atrial fibrillation CHF (congestive heart failure) FHx: cholecystectomy Hyperlipidemia Hypertension Hypothyroid Surgical History H/O: hysterectomy History of bilateral knee replacement History of cholecystectomy Stented coronary artery Family History Mother Myocardial infarction Father Myocardial infarction Social History Smoking Status: Never smoker Hx Alcohol Use: No Hx Substance Use: No Preferred Language: Faroese Communication Ability: Effective 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 She is alert and oriented x3. Pleasant cooperative. No acute distress. On examination of her right foot, I remove the red sock that she has on which is troublesome for her because it causes her discomfort. This reveals a moderately swollen foot over the dorsum of the foot and the ankle. She has moderate erythema over the lateral malleolus as well as the medial malleolus. Very mild erythema over the anterior portion of the ankle. She is extremely sensitive to light touch over these areas. She has pain on palpation over the dorsum of the foot as well near the ankle but not so much over the metacarpals distally. The swelling does go down to her toes somewhat compared to the left foot which is normal. I cannot appreciate a dorsalis pedis pulse secondary to swelling however she does have good capillary refill of the toes that is less than 2 seconds. Sensation is intact. She states that she might have a little bit of decreased sensation compared to the left toes but not much. She is able to move her toes with active range of motion but not full range of motion. If she tries to do full range of motion of her toes it causes discomfort in her foot and ankle. I can take her through passive dorsiflexion of the great toe which causes her some mild pain in the dorsum of her foot and ankle. She has no pain on palpation of the lower extremity below the knee until you start getting down to just proximal to the ankle. Calves are soft and nontender. She is able to take her ankle through gentle range of motion but her range of motion is limited. Results & Data ([facility]) Vital Signs (Past 12 Hours) Vital Signs Temp Pulse Resp BP Pulse Ox 05/03/21 12:11 36.7 C 85 22 141/60 H 92 05/03/21 08:09 37.8 C H 96 H 17 139/71 90 05/03/21 04:00 36.6 C 90 18 166/67 H 94 Laboratory Results Laboratory Results WBC 10.50 K/uL (4.8-10.8) 05/03/21 07:42 RBC 3.88 M/uL (4.2-5.4) L 05/03/21 07:42 Hgb 12.3 g/dL (12.0-16.0) 05/03/21 07:42 Hct 37.4 % (37-47) 05/03/21 07:42 MCV 96.4 fL (80-100) 05/03/21 07:42 MCH 31.7 pg (25-34) 05/03/21 07:42 MCHC 32.9 g/dL (32-36) 05/03/21 07:42 RDW Std Deviation 48.7 fL (36.4-46.3) H 05/03/21 07:42 RDW Coeff of Evelyn 13.8 % (11.5-14.5) 05/03/21 07:42 Plt Count 231 K/uL (130-400) 05/03/21 07:42 MPV 9.4 fL (7.4-10.4) 05/03/21 07:42 Immature Gran % (Auto) 0.2 % 05/03/21 07:42 Neut % (Auto) 77.9 % 05/03/21 07:42 Lymph % (Auto) 11.8 % 05/03/21 07:42 Stark % (Auto) 9.2 % 05/03/21 07:42 Eos % (Auto) 0.7 % 05/03/21 07:42 Baso % (Auto) 0.2 % 05/03/21 07:42 Neut # (Auto) 8.18 K/uL (1.4-6.5) H 05/03/21 07:42 Lymph # (Auto) 1.24 K/uL (1.2-3.4) 05/03/21 07:42 Stark # (Auto) 0.97 K/uL (0.11-0.59) H 05/03/21 07:42 Eos # (Auto) 0.07 K/uL (0-0.5) 05/03/21 07:42 Baso # (Auto) 0.02 K/uL (0-0.2) 05/03/21 07:42 Immature Gran # (Auto) 0.02 K/uL (0.00-0.02) 05/03/21 07:42 ESR 60 mm/hr (0-30) H 05/02/21 13:17 PT 11.0 Seconds (9.0-12.0) 05/02/21 13:17 INR 1.1 (0.9-1.1) 05/02/21 13:17 APTT 24.8 Seconds (21.0-31.0) 05/02/21 13:17 PTT Ratio 0.9 05/02/21 13:17 Sodium 138 mmol/L (136-145) 05/03/21 07:42 Potassium 4.0 mmol/L (3.5-5.1) D 05/03/21 07:42 Chloride 104 mmol/L (98-107) 05/03/21 07:42 Carbon Dioxide 26 mmol/L (21-32) 05/03/21 07:42 Anion Gap 8.0 (3-11) 05/03/21 07:42 BUN 10 mg/dl (7-18) 05/03/21 07:42 Creatinine 0.46 mg/dl (0.6-1.2) L 05/03/21 07:42 Est Cr Clr Drug Dosing 99.4 ml/min 05/03/21 07:42 Est GFR ( Amer) 109.7 ml/min 05/03/21 07:42 Est GFR (Non-Af Amer) 94.6 ml/min 05/03/21 07:42 BUN/Creatinine Ratio 21.8 (10-20) H 05/03/21 07:42 Glucose 121 mg/dl (70-99) H 05/03/21 07:42 Uric Acid 2.7 mg/dl (2.6-7.2) 05/02/21 13:17 Calcium 8.1 mg/dl (8.5-10.1) L 05/03/21 07:42 Total Bilirubin 1.0 mg/dl (0.2-1) 05/03/21 07:42 AST 22 U/L (15-37) 05/03/21 07:42 ALT 27 (12-78) 05/03/21 07:42 Alkaline Phosphatase 63 U/L (45-117) 05/03/21 07:42 Troponin I < 0.015 ng/ml (0-0.045) 05/03/21 00:15 C-Reactive Protein 17.60 mg/dl (0-0.29) H 05/02/21 18:30 NT-Pro-B Natriuret Pep 1475 pg/ml (0-1800) 05/02/21 13:17 Total Protein 6.3 gm/dl (6.4-8.2) L 05/03/21 07:42 Albumin 2.4 gm/dl (3.4-5.0) L 05/03/21 07:42 Globulin 3.9 gm/dl (2.5-4.0) 05/03/21 07:42 Albumin/Globulin Ratio 0.6 (0.9-2) L 05/03/21 07:42 SARS-CoV-2, RNA, NAAT NEGATIVE (NEGATIVE) 05/02/21 17:[address] 05/02/21 17:[address], RIGHT FOOT CT CT DOSE: 255.60 mGy.cm HISTORY: Right ankle and foot pain, edema, redness TECHNIQUE: Multiaxial CT images of the right ankle and right foot were performed and reformatted in the sagittal and coronal plane without the use of contrast. A dose lowering technique was utilized adhering to the principles of ALARA. COMPARISON: None. FINDINGS: Extensive subcutaneous edema seen throughout the right ankle and right foot. No loculated fluid collections on this noncontrast study to suggest an abscess. Vascular calcifications are noted. The Achilles, flexor, extensor, and peroneal tendons appear grossly intact by CT. No acute fracture or dislocation within the right ankle or right foot. Mild degenerative changes seen within the tibiotalar joint and throughout the majority of the foot. No destructive changes to suggest an osteomyelitis. IMPRESSION: 1. Extensive subcutaneous edema seen throughout the right ankle and foot. 2. No fracture or dislocation. 3. No evidence for osteomyelitis. 4. Mild osteoarthritis. ACT 112: Negative or not required by law. Electronically signed by: Patrice Lockett M.D. 05/02/2021 8:[address] 05/02/21 17:[address], RIGHT FOOT CT CT DOSE: 255.60 mGy.cm HISTORY: Right ankle and foot pain, edema, redness TECHNIQUE: Multiaxial CT images of the right ankle and right foot were performed and reformatted in the sagittal and coronal plane without the use of contrast. A dose lowering technique was utilized adhering to the principles of ALARA. COMPARISON: None. FINDINGS: Extensive subcutaneous edema seen throughout the right ankle and right foot. No loculated fluid collections on this noncontrast study to suggest an abscess. Vascular calcifications are noted. The Achilles, flexor, extensor, and peroneal tendons appear grossly intact by CT. No acute fracture or dislocation within the right ankle or right foot. Mild degenerative changes seen within the tibiotalar joint and throughout the majority of the foot. No destructive changes to suggest an osteomyelitis. IMPRESSION: 1. Extensive subcutaneous edema seen throughout the right ankle and foot. 2. No fracture or dislocation. 3. No evidence for osteomyelitis. 4. Mild osteoarthritis. ACT 112: Negative or not required by law. Electronically signed by: Patrice Lockett M.D. 05/02/2021 8:15 PM Venous Doppler Study 05/02/21 17:50 RIGHT LOWER EXTREMITY VENOUS DOPPLER HISTORY: Right leg edema COMPARISON STUDY: None. FINDINGS: There is normal compressibility, flow, and augmentation within the right lower extremity deep venous system. IMPRESSION: No DVT within the right lower extremity ACT 112: Negative or not required by law. Electronically signed by: Patrice Lockett M.D. 05/02/2021 7:03 PM
--- NOTE | 2021-05-03 16:39 | Electrocardiogram Report ---
Test Reason : Blood Pressure : / mmHG Vent. Rate : 115 BPM Atrial Rate : 136 BPM P-R Int : 000 ms QRS Dur : 088 ms QT Int : 300 ms P-R-T Axes : 000 106 -52 degrees QTc Int : 415 ms Poor data quality, interpretation may be adversely affected Atrial fibrillation Rightward axis Septal infarct , age undetermined Abnormal ECG When compared with ECG of 28-NOV-1999 12:42, Atrial fibrillation is now Present Inferolateral T wave abnormality is now present Confirmed by Wayne Hernandez ([id number]) on 05/03/2021 4:38:45 PM Referred By: Confirmed By:Wayne Hernandez
[2021-05-03] MEDS ORDERED: GADOBUTROL 65ML VIAL IV ONE (18:14)
--- NOTE | 2021-05-03 18:43 | Magnetic Resonance Report ---
MR ankle RT wo/w con CLINICAL HISTORY: r/o septic joint/tenosynovitis TECHNIQUE: Multisequence, multiplanar MR images of the right ankle were obtained with and without c ontrast. COMPARISON: None available at the time of this dictation. FINDINGS: Extensive soft tissue edema is seen compatible with history of cellulitis. Diffuse enhancement is not ed in the soft tissues as well. Tendon sheath fluid and and peritendinous enhancement is seen most pr ominently in the flexor hallucis longus and flexor digitorum longus tendons. No marrow edema or erosi on is seen to suggest osteomyelitis. There is an ankle joint effusion with synovial enhancement noted . Ligaments and tendons appear intact. IMPRESSION: 1. Diffuse cellulitis with tenosynovitis most prominent in the flexor hallucis longus and flexor dig itorum longus tendons. 2. Synovial enhancement in a joint effusion about the tibiotalar joint concerning for septic arthrit is. 3. No evidence of edie osteomyelitis. ACT 112: Negative or not required by law. Electronically signed by: Audie Brooke M.D. 05/03/2021 6:42 PM
[2021-05-03] MEDS: PRAMIPEXOLE DIHYDROCHLO 0.5 MG TAB PO SCH (21:10)
[2021-05-03] MEDS: RIVAROXABAN 20 MG TAB PO SCH (21:11)
[2021-05-03] MEDS: ATORVASTATIN 40 MG TAB PO SCH (21:12)
[2021-05-03] MEDS: CETIRIZINE HCL 10 MG TABLET PO SCH (21:12)
[2021-05-03] MEDS: traZODone HCL 50 MG TAB PO SCH (21:17)
[2021-05-03] MEDS: hydrOXYzine HCl 25 MG TAB PO SCH (21:17)
[2021-05-03] MEDS: MELATONIN 3 MG TAB PO SCH (21:17)
[2021-05-04] MEDS: traMADol HCL 50 MG TABLET PO PRN ×2 (04:27→14:17)
[2021-05-04] MEDS: LEVOTHYROXINE SODIUM 25 MCG TABLET PO SCH (05:47)
[2021-05-04] MEDS ORDERED: ETHYL CHLORIDE AER SPR 100 ML CAN EXT ONE (07:19)
[2021-05-04] MEDS ORDERED: VANCOMYCIN CONSULT ACTIVE PRN (07:19)
[2021-05-04] MEDS: ASPIRIN 81 MG ECTAB PO SCH (08:15)
[2021-05-04] MEDS: ADVANCED PROBIOTIC 1250 MG CAPSULE PO SCH ×2 (08:16→20:08)
[2021-05-04] MEDS: VENLAFAXINE HCL XR 75 MG CAPXR PO SCH (08:16)
[2021-05-04] MEDS: METOPROLOL SUCC 25MG EXT REL TAB PO SCH (08:16)
[2021-05-04] MEDS: PANTOprazole 40 MG TAB PO SCH (08:16)
[2021-05-04] MEDS: CALCIUM 600MG + VIT D 400 IU TAB PO SCH (08:16)
[2021-05-04] MEDS: MONTELUKAST SODIUM 10 MG TABLET PO SCH (08:16)
[2021-05-04] MEDS: CEROVITE ADV FORMULA TAB PO SCH ×2 (08:16→20:07)
[2021-05-04] MEDS: PRAMIPEXOLE DIHYDROCHLO 0.25 MG TAB PO SCH (08:17)
[2021-05-04] MEDS: MoRPHine SULFATE 2 MG/ML CARP IV PRN (08:17)
[2021-05-04] MEDS: VALSARTAN/SACUBITRIL 26/24MG TAB PO SCH ×2 (08:17→20:06)
[2021-05-04] MEDS ORDERED: COLCHICINE 0.6 MG TAB PO SCH (09:00)
[2021-05-04] MEDS ORDERED: VANCOMYCIN HCL 2,000 MG in SODIUM CHLORIDE 0.9% 500 ML IV ONE (09:00)
--- NOTE | 2021-05-04 14:17 | Pharmacy Report ---
Pharmacy Vanc AUC Short Note - Date of Service May 04, 2021 - Assessment & Plan Assessment 81 year old F ordered IV Vancomycin for treatment of septic arthritis. Pertinent microbiologic data includes: remote hx MRSA cellulitis. Plan Vancomycin * AUC/CLAIRE is the preferred PK/PD target for vancomycin * AUC guided dosing is effective and associated with decreased risk of nephrotoxicity compared to traditional trough targets * Loading dose: Vancomycin 2,000 mg IV x 1 * Maintenance dose: 1,250mg IV Q12hrs * Trough level of 16.7 mcg/mL is predicted to achieve target AUC/CLAIRE of 400-600 mg/L.hr and may be associated with a 12 % risk of nephrotoxicity * Trough level ordered for: 05/06/21 @ 0900 Pharmacy will continue to follow and will adjust dose/frequency as necessary. Thank you.
--- NOTE | 2021-05-04 15:10 | Hospitalist Progress Note ---
Date of Service May 04, 2021 Assessment & Plan (1) Right foot pain: Plan: Likely gout and to rule out septic arthritis Right foot pain/swelling and redness x 3 days Was seen and eval at [facility] - awaiting records, dx with GOUT and prescribed prednisone, indomethacin and keflex for ? cellulitis pt w/o improvement obtain CT R Foot/ankle-soft tissue swelling without any abscess or osteomyelitis RLE venous doppler-negative for any thrombosis No evidence of infection - but again wait for current imaging - hold on antibiotics at this time ESR is high at 60 and CRP is high at 17 Will start colchicine smaller doses given cardiac history and on beta-roxi. Cannot use any NSAID is as on Xarelto. Steroid will be used if suspicion for septic arthritis is ruled out Colchicine has been discontinued Orthopedic has been consulted for further evaluation Pain seems to be increasing and the patient has been put on intravenous vancomycin from yesterday by Ortho MRI of the right ankle did show possible septic arthritis and she will have aspiration of the joint sometime today We will increase the pain medications to morphine 4 mg every 3 hourly as needed (2) Chest pain: Plan: This is a 81-year-old female who has significant past medical history of CAD with history of stenting, persistent atrial fibrillation, RLS, insomnia, CHF, HTN, HLD, hypothyroidism who presents to ED after complaining of right foot pain x3 days and chest pain x1 day. Chest Pain CAD w/ hx of stent Afib CHF Cp reported after taking 5 extra strength tylenol, likely esophageal spasm, vs gerd, vs anx Cycle troponins for completeness-remain unremarkable EKG unremarkable Echo has been-EF 55 to 60%, there is moderate concentric LV hypertrophy with hypokinesis of the base lateral wall, left atrium is severely dilated, aortic valve is mildly calcified, mild valvular aortic stenosis, there is mild mitral regurgitation, mild tricuspid regurgitation and estimated pulmonary systolic pressure is 53 mmHg. Continue metoprolol, Entresto, ASA, atorvastatin, Xarelto CXR with evidence of pulm vasc congestion possible in setting of HTN Urgency - give Lasix x 1 now Denies any more chest pain and/or palpitation Insomnia continue melatonin, trazodone, hydroxyzine RLS continue mirapex DVT ppx: Xarelto Dispo: med tele; can likely downgrade to med/surg when cardiac source of CP ruled out PCP: Dr. Reese, [facility] FULL CODE Admission and Anticipated Discharge Date Admission Date: May 02, 2021 Subjective 05/03/2021 The patient was seen and examined in medical telemetry unit She has been complaining of right ankle pain with swelling and redness for the last 3 days She woke up with pain and the condition has been getting worse Denies any history of trauma and denies any fever and/or chills. No nausea and or vomiting 05/04/2021 The patient was seen and examined in medical telemetry unit She has been having more pain in the right ankle today MRI of the right ankle did show possible septic arthritis and she will have aspiration of the joint sometime today Denies any fever and no chills Review of Systems Review of Systems: All systems reviewed and are unremarkable except as noted below Musculoskeletal: Pain, swelling, redness, increased temperature and tenderness involving the right ankle Physical Exam Physical Exam: Lying in bed with discomfort secondary to right foot pain Constitutional: well developed, well nourished, + ill appearing and average body habitus Eyes: PERRL, conjunctivae normal, anicteric sclerae ENMT: external ear and nose normal, oropharynx normal Neck: trachea midline, no thyromegaly Respiratory: no respiratory distress Auscultation: lungs clear to auscultation bilaterally Cardiovascular: Rate/Rhythm: regular rate and regular rhythm; not tachycardic Heart Sounds: normal S1 and normal S2; no murmur Extremities: + edema (Right foot and ankle) Gastrointestinal (Abdomen): Inspection/Auscultation: normal bowel sounds; abdomen not distended Percussion/Palpation: abdomen soft; abdomen nontender Musculoskeletal: Ankle: + ankle abnormal to inspection (Right ankle is swollen, redness, increased local temperature and tenderness) and + joint line tenderness (ankle) (Any movement is extremely painful) Neurologic: Alert, awake and oriented x3. No focal sensory and motor deficit appreciated Lymphatic: no cervical or axillary lymphadenopathy Results & Data Results & Data ([facility]) Vital Signs (Past 12 Hours) Vital Signs Temp Pulse Resp BP Pulse Ox 05/04/21 11:20 36.7 C 94 H 16 132/75 90 05/04/21 07:37 36.9 C 96 H 16 159/71 H 90 05/04/21 04:00 37.2 C 94 H 18 140/76 92 Medications Administered Current Inpatient Medications Acetaminophen (Acetaminophen 325 Mg Tab) 650 mg PO Q4H PRN PRN Reason: Pain or Fever Stop: 06/01/21 20:08 Al Hydrox/Mg Hydrox/Simethicone (Aluminum/Magnesium Susp 30 Ml Udc) 15 ml PO Q4H PRN PRN Reason: Dyspepsia Stop: 06/01/21 20:08 Aspirin (Aspirin 81 Mg Ectab) 81 mg PO DAILY [facility] Stop: 06/02/21 08:59 Last Admin: 05/04/21 08:15 Dose: 81 mg Documented by: Atorvastatin Calcium (Atorvastatin 40 Mg Tab) 40 mg PO HS [facility] Stop: 06/01/21 20:59 Last Admin: 05/03/21 21:12 Dose: 40 mg Documented by: Cetirizine HCl (Cetirizine Hcl 10 Mg Tablet) 10 mg PO PM [facility] Stop: 06/01/21 20:59 Last Admin: 05/03/21 21:12 Dose: 10 mg Documented by: Colchicine (Colchicine 0.6 Mg Tab) 0.6 mg PO BID [facility] Stop: 06/03/21 08:59 Last Admin: 05/04/21 08:16 Dose: 0.6 mg Documented by: Hydroxyzine HCl (Hydroxyzine Hcl 25 Mg Tab) 25 mg PO HS [facility] Stop: 06/01/21 20:59 Last Admin: 05/03/21 21:17 Dose: 25 mg Documented by: Vancomycin HCl 1,250 mg/ (Sodium Chloride) 275 mls @ 125 mls/hr IV Q12H [facility]; Protocol Stop: 06/15/21 20:59 Lactobacillus Acidoph/Casei/Rhamnos (Advanced Probiotic 1250 Mg Capsule) 2 cap PO BID [facility] Stop: 06/01/21 20:59 Last Admin: 05/04/21 08:16 Dose: 2 cap Documented by: Levothyroxine Sodium (Levothyroxine Sodium 25 Mcg Tablet) 25 mcg PO DAILYBB [facility] Stop: 06/02/21 06:29 Last Admin: 05/04/21 05:47 Dose: 25 mcg Documented by: Magnesium Hydroxide (Magnesium Hydroxide Susp 30 Ml Udc) 30 ml PO Q12H PRN PRN Reason: Constipation Stop: 06/01/21 20:08 Melatonin (Melatonin 3 Mg Tab) 6 mg PO HS [facility] Stop: 06/01/21 20:59 Last Admin: 05/03/21 21:17 Dose: 6 mg Documented by: Metoprolol Succinate (Metoprolol Succ 25mg Ext Rel Tab) 125 mg PO DAILY [facility] Stop: 06/02/21 08:59 Last Admin: 05/04/21 08:16 Dose: 125 mg Documented by: Miscellaneous Information (Vancomycin Consult Active) 1 ea N/A UD PRN PRN Reason: Consult Stop: 06/03/21 07:18 Montelukast Sodium (Montelukast Sodium 10 Mg Tablet) 10 mg PO DAILY [facility] Stop: 06/02/21 08:59 Last Admin: 05/04/21 08:16 Dose: 10 mg Documented by: Morphine Sulfate (Morphine Sulfate 2 Mg/Ml Carp) 2 mg IV Q3H PRN PRN Reason: Severe Pain Stop: 05/16/21 20:08 Last Admin: 05/04/21 08:17 Dose: 2 mg Documented by: Multivitamins/Minerals (Calcium 600mg + Vit D 400 Iu Tab) 1 tab PO DAILY [facility] Stop: 06/02/21 08:59 Last Admin: 05/04/21 08:16 Dose: 1 tab Documented by: Multivitamins/Minerals (Cerovite Adv Formula Tab) 1 tab PO BID [facility] Stop: 06/01/21 20:59 Last Admin: 05/04/21 08:16 Dose: 1 tab Documented by: Ondansetron HCl (Ondansetron Inj 2 Mg/Ml 2 Ml Vial) 4 mg IV Q6H PRN PRN Reason: Nausea Stop: 06/01/21 20:08 Pantoprazole Sodium (Pantoprazole 40 Mg Tab) 40 mg PO DAILY [facility] Stop: 06/02/21 08:59 Last Admin: 05/04/21 08:16 Dose: 40 mg Documented by: Polyethylene Glycol (Polyethylene (Miralax) 17 Gm Pack) 17 gm PO DAILY PRN PRN Reason: Constipation Stop: 06/01/21 20:08 Pramipexole Dihydrochloride (Pramipexole Dihydrochlo 0.25 Mg Tab) 0.25 mg PO DAILY [facility] Stop: 06/02/21 08:59 Last Admin: 05/04/21 08:17 Dose: 0.25 mg Documented by: Pramipexole Dihydrochloride (Pramipexole Dihydrochlo 0.5 Mg Tab) 0.5 mg PO HS [facility] Stop: 06/01/21 20:59 Last Admin: 05/03/21 21:10 Dose: 0.5 mg Documented by: Rivaroxaban (Rivaroxaban 20 Mg Tab) 20 mg PO PM [facility] Stop: 06/01/21 20:59 Last Admin: 05/03/21 21:11 Dose: 20 mg Documented by: Sacubitril/Valsartan (Valsartan/Sacubitril 26/24mg Tab) 1 tab PO BID [facility] Stop: 06/01/21 20:59 Last Admin: 05/04/21 08:17 Dose: 1 tab Documented by: Tramadol HCl (Tramadol Hcl 50 Mg Tablet) 25 mg PO Q6H PRN PRN Reason: Pain Stop: 06/02/21 01:23 Last Admin: 05/04/21 14:17 Dose: 25 mg Documented by: Trazodone HCl (Trazodone Hcl 50 Mg Tab) 150 mg PO HS [facility] Stop: 06/01/21 20:59 Last Admin: 05/03/21 21:17 Dose: 150 mg Documented by: Venlafaxine HCl (Venlafaxine Hcl Xr 75 Mg Capxr) 75 mg PO DAILY [facility] Stop: 06/02/21 08:59 Last Admin: 05/04/21 08:16 Dose: 75 mg Documented by: (1) Chest pain Chest pain type: unspecified Qualified Code(s): R07.9 - Chest pain, unspecified
[2021-05-04 17:00] LABS: Appearance Synovial Fluid BLOODY; Color Synovial Fluid RED; Mononuclear WBC Synovial 6.3 %; Polynuclear WBC Synovial 93.7 %; RBC Synovial Fluid (A) 382000 /uL; Source Synovial Fluid OTHER ANKLE; WBC Synovial Fluid (A) 125451 /ul (0-200)
--- NOTE | 2021-05-04 17:21 | Anesthesiology Consultation ---
Date of Service May 04, 2021 Assessment & Plan Chart Review Chart Review: Acceptable Risk for Surgery (necessary surgery) and Patient NOT seen in Pre Admission Testing Consults Requested none History Surgery Operation Date: 05/05/21 10:35 Proposed Procedures p Incision and Drainage of Right Ankle - Aaron Lopez DO Height/Weight Height: 5 ft 4 in Weight: 76.2 kg Allergies Allergy/AdvReac Type Severity Reaction Status Date / Time weed pollen Allergy Intermediate Verified 04/19/21 09:08 Medications Home Medications Medication Instructions Recorded Confirmed Last Taken Lactobacillus acidophilus 1,000 mmu cells PO BID 05/02/21 05/02/21 Unknown aspirin 81 mg tablet,delayed 81 mg PO DAILY 05/02/21 05/02/21 Unknown release atorvastatin 40 mg tablet 40 mg PO HS 05/02/21 05/02/21 Unknown calcium carbonate 500 mg-vitamin 1 tab PO DAILY 05/02/21 05/02/21 Unknown D3 3.125 mcg (125 unit) tablet cetirizine 10 mg tablet 10 mg PO PM 05/02/21 05/02/21 Unknown coenzyme Q10 100 mg capsule 200 mg PO PM 05/02/21 05/02/21 Unknown (CoQ-10) esomeprazole magnesium 40 mg 40 mg PO DAILY 05/02/21 05/02/21 Unknown capsule,delayed release furosemide 40 mg tablet 40 mg PO DAILY PRN 05/02/21 05/02/21 Unknown glucosamine-chondroitin 250 mg-200 2 tab PO BIDM 05/02/21 05/02/21 Unknown mg tablet (Osteo Bi-Flex) hydroxyzine HCl 25 mg tablet 25 mg PO HS 05/02/21 05/02/21 Unknown levothyroxine 25 mcg tablet 25 mcg PO DAILY 05/02/21 05/02/21 Unknown melatonin 5 mg tablet 5 mg PO HS 05/02/21 05/02/21 Unknown metoprolol succinate 50 mg 125 mg PO DAILY 05/02/21 05/02/21 Unknown tablet,extended release 24 hr montelukast 10 mg tablet 10 mg PO DAILY 05/02/21 05/02/21 Unknown pramipexole 0.25 mg tablet 0.25 mg PO DAILY 05/02/21 05/02/21 Unknown pramipexole 0.25 mg tablet 0.5 mg PO HS 05/02/21 05/02/21 Unknown rivaroxaban 20 mg tablet (Xarelto) 20 mg PO PM 05/02/21 05/02/21 Unknown sacubitril 24 mg-valsartan 26 mg 1 tab PO BID 05/02/21 05/02/21 Unknown tablet (Entresto) trazodone 150 mg tablet 150 mg PO HS 05/02/21 05/02/21 Unknown venlafaxine 75 mg capsule,extended 75 mg PO DAILY 05/02/21 05/02/21 Unknown release 24 hr vitamins A,C,[id number]-noew-pyvkqm 7,160 1 tab PO BID 05/02/21 05/02/21 Unknown unit-113 mg-100 unit tablet (PreserVision AREDS) Active Medications Generic Name Dose Route Start Last Admin Trade Name Amelia PRN Reason Stop Dose Admin Aspirin 81 mg 05/03/21 09:00 05/04/21 08:15 Aspirin 81 Mg Ectab PO 06/02/21 08:59 81 mg DAILY ZOEY Administration Atorvastatin Calcium 40 mg 05/02/21 21:00 05/03/21 21:12 Atorvastatin 40 Mg Tab PO 06/01/21 20:59 40 mg HS ZOEY Administration Cetirizine HCl 10 mg 05/02/21 21:00 05/03/21 21:12 Cetirizine Hcl 10 Mg Tablet PO 06/01/21 20:59 10 mg PM ZOEY Administration Hydroxyzine HCl 25 mg 05/02/21 21:00 05/03/21 21:17 Hydroxyzine Hcl 25 Mg Tab PO 06/01/21 20:59 25 mg HS ZOEY Administration Lactobacillus Acidoph/Casei/Rhamnos 2 cap 05/02/21 21:00 05/04/21 08:16 Advanced Probiotic 1250 Mg Capsule PO 06/01/21 20:59 2 cap BID ZOEY Administration Levothyroxine Sodium 25 mcg 05/03/21 06:30 05/04/21 05:47 Levothyroxine Sodium 25 Mcg Tablet PO 06/02/21 06:29 25 mcg DAILYBB ZOEY Administration Melatonin 6 mg 05/02/21 21:00 05/03/21 21:17 Melatonin 3 Mg Tab PO 06/01/21 20:59 6 mg HS ZOEY Administration Metoprolol Succinate 125 mg 05/03/21 09:00 05/04/21 08:16 Metoprolol Succ 25mg Ext Rel Tab PO 06/02/21 08:59 125 mg DAILY ZOEY Administration Montelukast Sodium 10 mg 05/03/21 09:00 05/04/21 08:16 Montelukast Sodium 10 Mg Tablet PO 06/02/21 08:59 10 mg DAILY ZOEY Administration Multivitamins/Minerals 1 tab 05/03/21 09:00 05/04/21 08:16 Calcium 600mg + Vit D 400 Iu Tab PO 06/02/21 08:59 1 tab DAILY ZOEY Administration Multivitamins/Minerals 1 tab 05/02/21 21:00 05/04/21 08:16 Cerovite Adv Formula Tab PO 06/01/21 20:59 1 tab BID ZOEY Administration Pantoprazole Sodium 40 mg 05/03/21 09:00 05/04/21 08:16 Pantoprazole 40 Mg Tab PO 06/02/21 08:59 40 mg DAILY ZOEY Administration Pramipexole Dihydrochloride 0.25 mg 05/03/21 09:00 05/04/21 08:17 Pramipexole Dihydrochlo 0.25 Mg Tab PO 06/02/21 08:59 0.25 mg DAILY ZOEY Administration Pramipexole Dihydrochloride 0.5 mg 05/02/21 21:00 05/03/21 21:10 Pramipexole Dihydrochlo 0.5 Mg Tab PO 06/01/21 20:59 0.5 mg HS ZOEY Administration Rivaroxaban 20 mg 05/02/21 21:00 05/03/21 21:11 Rivaroxaban 20 Mg Tab PO 06/01/21 20:59 20 mg PM ZOEY Administration Sacubitril/Valsartan 1 tab 05/02/21 21:00 05/04/21 08:17 Valsartan/Sacubitril 26/24mg Tab PO 06/01/21 20:59 1 tab BID ZOEY Administration Tramadol HCl 25 mg 05/03/21 01:24 05/04/21 14:17 Tramadol Hcl 50 Mg Tablet PO 06/02/21 01:23 25 mg Q6H PRN Administration Pain Trazodone HCl 150 mg 05/02/21 21:00 05/03/21 21:17 Trazodone Hcl 50 Mg Tab PO 06/01/21 20:59 150 mg HS ZOEY Administration Venlafaxine HCl 75 mg 05/03/21 09:00 05/04/21 08:16 Venlafaxine Hcl Xr 75 Mg Capxr PO 06/02/21 08:59 75 mg DAILY ZOEY Administration Past Medical History Medical History Arthritis Atrial fibrillation CHF (congestive heart failure) FHx: cholecystectomy Hyperlipidemia Hypertension Hypothyroid Past Family History Family History Mother Myocardial infarction Father Myocardial infarction Past Surgical History Surgical History H/O: hysterectomy History of bilateral knee replacement History of cholecystectomy Stented coronary artery Social History Smoking Status: Never smoker Hx Alcohol Use: No Hx Substance Use: No substance use type: does not use Physical Exam Vital Signs Last Vital Signs Temp 36.7 C 05/04/21 11:20 Pulse 94 H 05/04/21 11:20 Resp 16 05/04/21 11:20 BP 132/75 05/04/21 11:20 Pulse Ox 90 05/04/21 11:20 Testing Laboratory Results 05/03/21 07:42 05/03/21 07:42 PT 11.0 Seconds (9.0-12.0) 05/02/21 13:17 INR 1.1 (0.9-1.1) 05/02/21 13:17 APTT 24.8 Seconds (21.0-31.0) 05/02/21 13:17 Electrocardiogram Date: 05/02/21 DICTATED BY:Wayne Hernandez MD Test Reason : Blood Pressure : / mmHG Vent. Rate : 115 BPM Atrial Rate : 136 BPM P-R Int : 000 ms QRS Dur : 088 ms QT Int : 300 ms P-R-T Axes : 000 106 -52 degrees QTc Int : 415 ms Poor data quality, interpretation may be adversely affected Atrial fibrillation Rightward axis Septal infarct , age undetermined Abnormal ECG When compared with ECG of 28-NOV-1999 12:42, Atrial fibrillation is now Present Inferolateral T wave abnormality is now present Confirmed by Wayne Hernandez ([id number]) on 05/03/2021 4:38:45 PM Referred By: Confirmed By:Wayne Hernandez Chest X-Ray Date: 05/02/21 XR chest 2V PA/lateral HISTORY: 81 years-old Female Chest Pain acute atypical chest pain COMPARISON: None TECHNIQUE: AP and lateral views of the chest FINDINGS: The cardiac silhouette is enlarged. Calcified plaque of the thoracic aorta. No pneumothorax. Small pleural effusions. Mild pulmonary vascular congestion. Linear subsegmental left basilar opacities. Degenerative changes of the shoulders and spine. IMPRESSION: 1. Cardiomegaly with pulmonary vascular congestion and small pleural effusions. 2. Mild linear subsegmental atelectasis/scarring of the lingula. Echocardiogram Date: 05/03/21 EF: 55-60 RWMA: + hypokinetic (base lateral wall) Other Findings: + atrial enlargement (left atrium severe dilation) and + LVH ( moderate concentric) Valvular Disease: + (mild) and + MR (mild) atrial fibrillation, mild TR, systolic pulmonary pressure 53 mm Hg
[2021-05-04] MEDS: CETIRIZINE HCL 10 MG TABLET PO SCH (20:07)
[2021-05-04] MEDS: PRAMIPEXOLE DIHYDROCHLO 0.5 MG TAB PO SCH (20:07)
[2021-05-04] MEDS: ATORVASTATIN 40 MG TAB PO SCH (20:07)
[2021-05-04] MEDS: MELATONIN 3 MG TAB PO SCH (20:12)
[2021-05-04] MEDS: VANCOMYCIN HCL 1,250 MG in SODIUM CHLORIDE 0.9% 250 ML IV SCH (20:12)
[2021-05-04] MEDS: traZODone HCL 50 MG TAB PO SCH (20:12)
[2021-05-04] MEDS: hydrOXYzine HCl 25 MG TAB PO SCH (20:15)
[2021-05-05] MEDS: MoRPHine SULFATE 2 MG/ML CARP IV PRN ×3 (05:22→17:55)
[2021-05-05] MEDS: LEVOTHYROXINE SODIUM 25 MCG TABLET PO SCH (05:25)
[2021-05-05 05:58] LABS: Basophils # (auto) 0.02 K/uL (0-0.2); Basophils % (auto) 0.2 %; Eosinophils # (auto) 0.71 K/uL (0-0.5); Eosinophils % (auto) 7.8 %; Hematocrit (blood only) 36.1 % (37-47); Hemoglobin 11.8 g/dL (12.0-16.0); Immature Granulocytes # (auto) 0.02 K/uL (0.00-0.02); Immature Granulocytes % (auto) 0.2 %; Lymphocytes # (auto) 1.08 K/uL (1.2-3.4); Lymphocytes % (auto) 11.9 %; Mean Corpuscular Hemoglobin 31.8 pg (25-34); Mean Corpuscular Hgb Conc 32.7 g/dL (32-36); Mean Corpuscular Volume 97.3 fL (80-100); Mean Platelet Volume 9.2 fL (7.4-10.4); Monocytes # (auto) 0.84 K/uL (0.11-0.59); Monocytes % (auto) 9.2 %; Neutrophils # (auto) 6.44 K/uL (1.4-6.5); Neutrophils % (auto) 70.7 %; Platelet Count 273 K/uL (130-400); RDW Coefficient of Variation 13.7 % (11.5-14.5); RDW Standard Deviation 49.1 fL (36.4-46.3); Red Blood Count 3.71 M/uL (4.2-5.4); White Blood Count 9.11 K/uL (4.8-10.8)
[2021-05-05 06:39] LABS: Calcium 8.1 mg/dl (8.5-10.1); Creatinine Clr Calc Pharmacy 89.4 ml/min; Est GFR (Non-African American) 91.5 ml/min; Magnesium 2.3 mg/dl (1.8-2.4); Potassium 3.8 mmol/L (3.5-5.1)
[2021-05-05 06:41] LABS: Albumin Globulin Ratio 0.5 (0.9-2); Bilirubin,Total 0.9 mg/dl (0.2-1); Globulin 3.9 gm/dl (2.5-4.0); Total Protein 5.9 gm/dl (6.4-8.2)
[2021-05-05] MEDS: VANCOMYCIN HCL 1,250 MG in SODIUM CHLORIDE 0.9% 250 ML IV SCH ×2 (08:05→20:33)
[2021-05-05] MEDS: METOPROLOL SUCC 25MG EXT REL TAB PO SCH (09:00)
[2021-05-05] MEDS: ADVANCED PROBIOTIC 1250 MG CAPSULE PO SCH ×2 (09:06→20:34)
[2021-05-05] MEDS: CALCIUM 600MG + VIT D 400 IU TAB PO SCH (09:07)
[2021-05-05] MEDS: VENLAFAXINE HCL XR 75 MG CAPXR PO SCH (09:07)
[2021-05-05] MEDS: PANTOprazole 40 MG TAB PO SCH (09:07)
[2021-05-05] MEDS: PRAMIPEXOLE DIHYDROCHLO 0.25 MG TAB PO SCH (09:08)
[2021-05-05] MEDS: ASPIRIN 81 MG ECTAB PO SCH (09:08)
[2021-05-05] MEDS: MONTELUKAST SODIUM 10 MG TABLET PO SCH (09:08)
[2021-05-05] MEDS: VALSARTAN/SACUBITRIL 26/24MG TAB PO SCH ×2 (09:10→20:34)
[2021-05-05] MEDS: CEROVITE ADV FORMULA TAB PO SCH ×2 (09:10→20:36)
[2021-05-05] MEDS ORDERED: HYDROmorphone INJ 0.5 MG/0.5 ML SYR IV ONE (10:04)
[2021-05-05] MEDS ORDERED: HYDROmorphone INJ 0.5 MG/0.5 ML SYR IV STA (10:09)
--- NOTE | 2021-05-05 10:40 | Hospitalist Progress Note ---
Date of Service May 05, 2021 Assessment & Plan (1) Septic arthritis of ankle and foot region: Plan: Was seen and eval at [facility] - awaiting records, dx with GOUT and prescribed prednisone, indomethacin and keflex for ? cellulitis pt w/o improvement obtain CT R Foot/ankle-soft tissue swelling without any abscess or osteomyelitis RLE venous doppler-negative for any thrombosis ESR is high at 60 and CRP is high at 17 Colchicine was initially given and then discontinued MRI of the right ankle did show possible septic arthritis Ortho consulted and FNA performed, initial cultures growing staph aureus with pending sensitivities. Pain meds PRN Continues on vanc empirically. Plans for OR for washout today. (2) Chest pain: Plan: Initially present on admission, currently denies. Has CAD with h/o stent Cp reported after taking 5 extra strength tylenol, likely esophageal spasm, vs gerd, vs anx Cycle troponins for completeness-remain unremarkable EKG unremarkable Echo has been-EF 55 to 60%, there is moderate concentric LV hypertrophy with hypokinesis of the base lateral wall, left atrium is severely dilated, aortic valve is mildly calcified, mild valvular aortic stenosis, there is mild mitral regurgitation, mild tricuspid regurgitation and estimated pulmonary systolic pressure is 53 mmHg. Continue metoprolol, Entresto, ASA, atorvastatin, Xarelto (on hold for procedure) CXR with evidence of pulm vasc congestion possible in setting of HTN Urgency - give Lasix x 1 now Denies any more chest pain and/or palpitation (3) Insomnia: Plan: continue melatonin, trazodone, hydroxyzine per home regimen. (4) RLS (restless legs syndrome): Plan: cont mirapex per home regimen. (5) Atrial fibrillation: Plan: Chronic atrial fibrillation with rate control on Toprol-XL, chronically anticoagulated with rivaroxaban. Anticoagulation on hold in setting of upcoming procedure. Will restart when okay with surgery. She continues to remain in atrial fibrillation on telemetry. (6) CHF (congestive heart failure): Plan: Chronic heart failure with preserved ejection fraction she has exertional weakness/fatigue and exertional dyspnea ongoing. She is followed by [facility] cardiology and was last seen 02/2021. She notably uses Lasix as needed if she gets a "chest heaviness" she typically uses it a few times a week and this resolves the issue for her. She typically takes Lasix as needed, and is currently not examining is volume overloaded., Appears compensated (7) DVT prophylaxis: Plan: rivaroxaban held in setting of upcoming procedure. Full code Dispo-to OR today and pending her recovery. [facility] Admission and Anticipated Discharge Date Admission Date: May 02, 2021 Subjective 81-year-old female presented with acute right ankle pain secondary to septic arthritis. She reports her pain is 10 out of 10 despite having 4 g of IV morphine this morning. She is unable to move her ankle around Denies any chest pain or shortness of breath Tolerating p.o. but did not eat this morning in preparation for surgery later today. Reports her symptoms have been ongoing for a week Review of Systems Review of Systems: All systems reviewed and negative except as indicated in subjective above. Physical Exam Physical Exam: CONSTITUTIONAL: WNWD, vitals as above, generally well- appearing, NAD EYES: normal conjunctivae, no scleral icterus ENT: external ear and nose normal, MMM NECK: trachea midline RESPIRATORY: clear to auscultation bilaterally, no crackles, rales or wheezes, normal respiratory effort CARDIOVASCULAR: regular rate and rhythm, S1 and 2 heard without murmurs, gallops or rubs, no JVD, no peripheral edema CHEST: inspection of chest was normal GASTROINTESTINAL: soft, nontender, ND, no guarding MUSCULOSKELETAL: strength 5/5 throughout, head is normocephalic and atraumatic RIGHT ANKLE: Swollen with decreased flexion extension and circumduction of the ankle. Little manipulation causes extreme pain, there is evidence of a needle insertion on the anterior ankle. Slight ecchymosis is present. SKIN: warm and dry NEUROLOGIC: CN 2-12 grossly intact, normal cognition, normal speech, no tremor PSYCHIATRIC: alert cooperative and oriented to person, place and time. Results & Data Results & Data ([facility]) Vital Signs (Past 12 Hours) Vital Signs Temp Pulse Pulse Pulse Resp BP Pulse Ox 05/05/21 07:34 37.1 C 99 H 17 130/70 94 05/05/21 03:45 36.9 C 62 18 136/71 92 05/05/21 00:13 96 H 05/04/21 23:01 37.3 C 92 H 18 129/74 99 Laboratory Results Short CBC 05/05/21 Range/Units 05:37 WBC 9.11 (4.8-10.8) K/uL Hgb 11.8 L (12.0-16.0) g/dL Hct 36.1 L (37-47) % Plt Count 273 (130-400) K/uL BMP 05/05/21 05:37 Sodium 136 Potassium 3.8 Chloride 100 Carbon Dioxide 32 BUN 9 Creatinine 0.51 L Glucose 109 H Calcium 8.1 L Liver Function 05/05/21 Range/Units 05:37 Total Bilirubin 0.9 (0.2-1) mg/dl AST 104 H (15-37) U/L ALT 84 H (12-78) Alkaline Phosphatase 76 (45-117) U/L Albumin 2.0 L (3.4-5.0) gm/dl Medications Administered Current Inpatient Medications Acetaminophen (Acetaminophen 325 Mg Tab) 650 mg PO Q4H PRN PRN Reason: Pain or Fever Stop: 06/01/21 20:08 Al Hydrox/Mg Hydrox/Simethicone (Aluminum/Magnesium Susp 30 Ml Udc) 15 ml PO Q4H PRN PRN Reason: Dyspepsia Stop: 06/01/21 20:08 Aspirin (Aspirin 81 Mg Ectab) 81 mg PO DAILY [facility] Stop: 06/02/21 08:59 Last Admin: 05/05/21 09:08 Dose: 81 mg Documented by: Atorvastatin Calcium (Atorvastatin 40 Mg Tab) 40 mg PO HS ZOEY Stop: 06/01/21 20:59 Last Admin: 05/04/21 20:07 Dose: 40 mg Documented by: Cetirizine HCl (Cetirizine Hcl 10 Mg Tablet) 10 mg PO PM ZOEY Stop: 06/01/21 20:59 Last Admin: 05/04/21 20:07 Dose: 10 mg Documented by: Hydroxyzine HCl (Hydroxyzine Hcl 25 Mg Tab) 25 mg PO HS [facility] Stop: 06/01/21 20:59 Last Admin: 05/04/21 20:15 Dose: 25 mg Documented by: Vancomycin HCl 1,250 mg/ (Sodium Chloride) 275 mls @ 125 mls/hr IV Q12H [facility]; Protocol Stop: 06/15/21 20:59 Last Admin: 05/05/21 08:05 Dose: 125 mls/hr Documented by: Lactobacillus Acidoph/Casei/Rhamnos (Advanced Probiotic 1250 Mg Capsule) 2 cap PO BID [facility] Stop: 06/01/21 20:59 Last Admin: 05/05/21 09:06 Dose: 2 cap Documented by: Levothyroxine Sodium (Levothyroxine Sodium 25 Mcg Tablet) 25 mcg PO DAILYBB [facility] Stop: 06/02/21 06:29 Last Admin: 05/05/21 05:25 Dose: 25 mcg Documented by: Magnesium Hydroxide (Magnesium Hydroxide Susp 30 Ml Udc) 30 ml PO Q12H PRN PRN Reason: Constipation Stop: 06/01/21 20:08 Melatonin (Melatonin 3 Mg Tab) 6 mg PO HS [facility] Stop: 06/01/21 20:59 Last Admin: 05/04/21 20:12 Dose: 6 mg Documented by: Metoprolol Succinate (Metoprolol Succ 25mg Ext Rel Tab) 125 mg PO DAILY [facility] Stop: 06/02/21 08:59 Last Admin: 05/04/21 08:16 Dose: 125 mg Documented by: Miscellaneous Information (Vancomycin Consult Active) 1 ea N/A UD PRN PRN Reason: Consult Stop: 06/03/21 07:18 Montelukast Sodium (Montelukast Sodium 10 Mg Tablet) 10 mg PO DAILY [facility] Stop: 06/02/21 08:59 Last Admin: 05/05/21 09:08 Dose: 10 mg Documented by: Morphine Sulfate (Morphine Sulfate 2 Mg/Ml Carp) 4 mg IV Q3H PRN PRN Reason: Severe Pain Stop: 05/16/21 20:08 Last Admin: 05/05/21 09:16 Dose: 4 mg Documented by: Multivitamins/Minerals (Calcium 600mg + Vit D 400 Iu Tab) 1 tab PO DAILY [facility] Stop: 06/02/21 08:59 Last Admin: 05/05/21 09:07 Dose: 1 tab Documented by: Multivitamins/Minerals (Cerovite Adv Formula Tab) 1 tab PO BID [facility] Stop: 06/01/21 20:59 Last Admin: 05/05/21 09:10 Dose: 1 tab Documented by: Ondansetron HCl (Ondansetron Inj 2 Mg/Ml 2 Ml Vial) 4 mg IV Q6H PRN PRN Reason: Nausea Stop: 06/01/21 20:08 Pantoprazole Sodium (Pantoprazole 40 Mg Tab) 40 mg PO DAILY [facility] Stop: 06/02/21 08:59 Last Admin: 05/05/21 09:07 Dose: 40 mg Documented by: Polyethylene Glycol (Polyethylene (Miralax) 17 Gm Pack) 17 gm PO DAILY PRN PRN Reason: Constipation Stop: 06/01/21 20:08 Pramipexole Dihydrochloride (Pramipexole Dihydrochlo 0.25 Mg Tab) 0.25 mg PO DAILY ZOEY Stop: 06/02/21 08:59 Last Admin: 05/05/21 09:08 Dose: 0.25 mg Documented by: Pramipexole Dihydrochloride (Pramipexole Dihydrochlo 0.5 Mg Tab) 0.5 mg PO HS ZOEY Stop: 06/01/21 20:59 Last Admin: 05/04/21 20:07 Dose: 0.5 mg Documented by: Rivaroxaban (Rivaroxaban 20 Mg Tab) 20 mg PO PM ZOEY Stop: 06/01/21 20:59 Last Admin: 05/03/21 21:11 Dose: 20 mg Documented by: Sacubitril/Valsartan (Valsartan/Sacubitril 26/24mg Tab) 1 tab PO BID ZOEY Stop: 06/01/21 20:59 Last Admin: 05/05/21 09:10 Dose: 1 tab Documented by: Tramadol HCl (Tramadol Hcl 50 Mg Tablet) 25 mg PO Q6H PRN PRN Reason: Pain Stop: 06/02/21 01:23 Last Admin: 05/04/21 14:17 Dose: 25 mg Documented by: Trazodone HCl (Trazodone Hcl 50 Mg Tab) 150 mg PO HS ZOEY Stop: 06/01/21 20:59 Last Admin: 05/04/21 20:12 Dose: 150 mg Documented by: Venlafaxine HCl (Venlafaxine Hcl Xr 75 Mg Capxr) 75 mg PO DAILY [facility]OEY Stop: 06/02/21 08:59 Last Admin: 05/05/21 09:07 Dose: 75 mg Documented by: (1) Chest pain Chest pain type: unspecified Qualified Code(s): R07.9 - Chest pain, unspecified
[2021-05-05] MEDS ORDERED: ONDANSETRON INJ 2 MG/ML 2 ML VIAL IV PRN (12:13)
[2021-05-05] MEDS ORDERED: ATROPINE SULFATE 0.1 MG/ML 10ML SYR IV PRN (12:13)
[2021-05-05] MEDS ORDERED: ePHEDrine sulfate 50 MG/ML AMP IV PRN (12:13)
[2021-05-05] MEDS ORDERED: MIDAZOLAM HCL 1 MG/ML 2ML VIAL ONE (12:30)
[2021-05-05] MEDS ORDERED: LIDOCAINE 2% 2 ML VIAL/AMP(20MG/ML) INFIL ONE (12:30)
[2021-05-05] MEDS ORDERED: ONDANSETRON INJ 2 MG/ML 2 ML VIAL ONE (12:30)
[2021-05-05] MEDS ORDERED: DEXAMETHASONE SOD INJ 4 MG/ML VIAL ONE (12:30)
[2021-05-05] MEDS ORDERED: fentaNYL citrate 100 MCG/2 ML VIAL ONE ×2 (12:30→14:04)
[2021-05-05] MEDS ORDERED: PROPOFOL IV EMULSION 10 MG/ML 20 ML VIAL IV ONE (12:30)
--- NOTE | 2021-05-05 12:43 | History & Physical Bridge Note ---
Date of Service May 05, 2021 History & Physical Bridge Note I have examined the patient, reviewed the History & Physical and in the interval since the performance of the History & Physical I have noted the following changes of clinical significance: no changes noted
--- NOTE | 2021-05-05 13:16 | History & Physical Bridge Note ---
Date of Service May 05, 2021 History & Physical Bridge Note I have examined the patient, reviewed the History & Physical and in the interval since the performance of the History & Physical I have noted the following changes of clinical significance: We will perform arthroscopic irrigation debridement right ankle due to septic arthritis and pseudogout, open incision and drainage abscess of the medial ankle and tenosynovectomy septic flexor hallucis longus and septic flexor digitorum longus tendons due to life and limb threatening infection. Remain n.p.o. Consent reviewed and signed with the patient.
[2021-05-05] MEDS ORDERED: METOPROLOL TARTRATE 1 MG/ML VIAL IV ONE (14:47)
--- NOTE | 2021-05-05 15:22 | Post Operative Brief Note ---
Immediate Post Op Note v1 Date of Surgery May 05, 2021 Pre & Post Diagnosis Operation Date: 05/05/21 10:35 Pre-Op Diagnosis: Acute Right Ankle septic arthritis, septic tenosynovitis flexor hallucis longus tendon, septic tenosynovitis flexor digitorum longus tendon, pseudogout, cellulitis right ankle, acute ankle pain Post-Op Diagnosis: tic arthritis, septic tenosynovitis flexor hallucis longus tendon, septic te nosynovitis flexor digitorum longus tendon, pseudogout, cellulitis right ankle, acute ankle pain I identified the patient and participated in the time-out.: Yes Procedure Operation Date: 05/05/21 10:35 Actual Procedures p Right Ankle: Arthroscopy with Irrigation and Debridement Septic Arthritis, major synovectomy right ankle, Open irrigation debridement flexor digitorum longus tendon, open irrigation debridement flexor digitorum longus tendon, tenosynovectomy flexor digitorum longus tendon, tenosynovectomy flexor hallucis longus tendon (Right) - Aaron Lopez DO Surgeon Aaron Lopez DO Gem Setter None Estimated Blood Loss 10 Findings Consistent with Post-Op Diagnosis Drains Hemovac Drain (single 10Fr) and Other (1/2 inch iodoform gauze drains x2 medial ankle/foot incision) Anesthesia Type General Complications none Disposition Accompanied Patient To Recovery: Yes
[2021-05-05] MEDS: fentaNYL citrate 100 MCG/2 ML VIAL IV PRN ×4 (15:35→15:50)
--- NOTE | 2021-05-05 16:11 | Anesthesiology Progress Note ---
Date of Service May 05, 2021 Anesthesia Post Procedure Vital Signs Vital Signs: Temp Pulse Pulse Pulse Resp BP BP 05/05/21 15:45 94 H 18 145/71 H 05/05/21 15:35 94 H 18 145/71 H 05/05/21 15:25 94 H 15 150/64 H 05/05/21 15:17 36.5 C 94 H 14 126/62 05/05/21 11:45 37.4 C 99 H 20 158/73 H 05/05/21 11:19 36.7 C 96 H 17 128/68 05/05/21 07:34 37.1 C 99 H 17 130/70 05/05/21 03:45 36.9 C 62 18 136/71 05/05/21 00:13 96 H 05/04/21 23:01 37.3 C 92 H 18 129/74 05/04/21 19:00 36.7 C 96 H 18 132/74 Pulse Ox 05/05/21 15:45 96 05/05/21 15:35 96 05/05/21 15:25 96 05/05/21 15:17 98 05/05/21 11:45 93 05/05/21 11:19 90 05/05/21 07:34 94 05/05/21 03:45 92 05/05/21 00:13 05/04/21 23:01 99 05/04/21 19:00 93 Pain Intensity Right Ankle: Pain Intensity: 6 Right Foot: Pain Intensity: 3 Transfer of Care Handoff Completed per policy Notes Mental Status: alert / awake / arousable and participated in evaluation Patient Amnestic to Procedure: Yes Nausea / Vomiting: adequately controlled Pain: adequately controlled Airway Patency, RR, SpO2: stable & adequate BP & HR: stable & adequate Hydration State: stable & adequate Anesthetic Complications: no major complications apparent and Pt Satisfied with anesthetic care
--- NOTE | 2021-05-05 16:24 | Operative Report (OR) ---
DATE OF PROCEDURE: 05/05/2021. PREOPERATIVE DIAGNOSES: 1. Right acute ankle septic arthritis. 2. Septic tenosynovitis of the flexor hallucis longus tendon. 3. Septic tenosynovitis of flexor digitorum longus tendon. 4. Pseudogout. 5. Cellulitis of the right ankle. 6. Acute ankle pain. POSTOPERATIVE DIAGNOSES: 1. Right acute ankle septic arthritis. 2. Septic tenosynovitis of the flexor hallucis longus tendon. 3. Septic tenosynovitis of flexor digitorum longus tendon. 4. Pseudogout. 5. Cellulitis of the right ankle. 6. Acute ankle pain. PROCEDURES: 1. Right ankle arthroscopy with irrigation and debridement, septic arthritis. 2. Major synovectomy of the right ankle. 3. Open irrigation and debridement of the flexor digitorum longus tendon. 4. Open irrigation and debridement, flexor hallucis longus tendon. 5. Tenosynovectomy of the flexor digitorum longus tendon. 6. Tenosynovectomy of the flexor hallucis longus tendon. SURGEON: Aaron Lopez DO. WELDER APPRENTICE COMBINATION: None. ANESTHESIA: General. SPECIMENS: None. The patient had prior aspiration consistent with septic arthritis and pseudogout o n 12/02/2020. DRAINS: Hemovac x1 at the tibiotalar joint and 1/2 inch iodoform gauze drains placed in the tendon s patricia of the flexor hallucis longus and flexor digitorum longus tendons. COMPLICATIONS: None. BLOOD LOSS: 10 mL. PERTINENT HISTORY: This is a 81-year-old female who has had worsening right ankle pain over the last several days. She was initially seen at [facility] where she was diagnosed with gout without asp iration. She was placed on a Medrol Dosepak, given Keflex and pain medication and also anti-inflamma tories. The patient continued to have worsening symptoms. She then presented to [facility]. She was evaluated and admitted to the hospitalist service, placed on IV antibiotics after which point she had advanced imaging including MRI demonstrating abundant tibiotalar joint fluid con cerning for septic arthritis and also tenosynovitis of the flexor digitorum longus and flexor halluci s longus tendons consistent with septic tenosynovitis. The patient also underwent an aspiration of t he right ankle joint, which eventually noted pseudogout crystals and gram-positive cocci. The patien t was then scheduled for surgery as indicated. All potential risks, benefits, complications, alternatives, rehab potential for incomplete relief of symptoms, need for further surgery, DVT, PE, , persistent pain, swelling, scarring, weakness, ne urovascular injury, wound complications, need for further surgery or irrigation was discussed with e patient. The patient decided to proceed with the procedure as indicated. DESCRIPTION OF PROCEDURE: The patient was taken to the operative suite and placed supine on the oper ating room table. After review of consent and identification of proper site. LMA was placed. A candelaria rniquet was applied high on the right thigh over cast padding. Right lower extremity was then steril td prepped and draped in usual fashion, elevated, and tourniquet inflated to 325 mmHg. There is no exsanguination performed due to the nature of the infection. Next, after surgical timeout was performed, an 11 blade scalpel was used to make an incision along e anterior medial aspect of the ankle joint with 11 blade scalpel followed by placement of blunt troc ar and sleeve, camera and inflow. Next, under direct visualization lateral portal was established wi an 18-gauge spinal needle and 11 blade scalpel incision and a 3.5 mm sucker shaver was introduced. There was noted to be significant synovitis throughout the ankle joint as well as murky purulent-ap pearing joint fluid of the right ankle. The arthroscope was directed throughout the joint, noting mu rky septic appearing fluid and hypertrophic synovitis medial, lateral, and central. Next, a 3.5 mm sucker shaver was then used to perform a major synovectomy of the right ankle as well as resection of debris and partially coagulated blood in the gutters, medial and lateral. Approximat td 6 liters of saline with Ancef was then used to lavage the right ankle until clear. Once this was completed, there was noted to be no evidence of osteochondral defects or osteoarticular injury. The arthroscope and instruments were removed from the joint and the portal sites were then used to place a 10-Tajik Hemovac drain exiting slightly proximal to the lateral portal using a small stab incisio n with 11 blade scalpel and used to shuttle a 10-Tajik Hemovac drain percutaneously. Next, the port al sites were closed using interrupted 4-0 nylon sutures. Next, a 15 blade scalpel was used to make an incision centered over the flexor digitorum longus tendo n along the posterior medial aspect of the right ankle. The incision was deepened through skin and s ubcutaneous tissue. Meticulous hemostasis was achieved with electrocautery. Full thickness skin fla ps were developed. The laciniate ligament was then incised in line with the skin incision. Careful retraction of the tissues were performed with Nicanor rakes and the tendon sheath of the flexor digitoru m longus was then identified and opened with a 15 blade scalpel. There was noted to be abundant hype rtrophic tenosynovitis surrounding the flexor digitorum longus tendon and also a slight head of flui d when opening the tendon sheath. A sample was obtained of the flexor digitorum longus tenosynovitis surrounding the tendon. This was then sent to pathology for specimen. Next, the dissection was carried down along the medial border of the foot and then blunt dissection w as performed down to the deep space of the foot and then a head of fluid was noted from the flexor di gitorum longus tendon sheath extending into the mid foot. Next, the flexor hallucis longus tendon sh eath was then opened with a 15 blade scalpel, taking care to retract and protect the neurovascular bu ndle. A head of fluid was noted proximal and then a secondary head of fluid noted distal. The tendo n was decompressed and opened from proximal to distal and abundant hypertrophic tenosynovitis consist ent with septic tenosynovitis was then resected using a pituitary rongeur and a rongeur. A tenosynov ectomy was also performed of the flexor digitorum longus tendon from proximal to distal. Next, bulb syringe and copious irrigation with Ancef was then used to lavage the deep foot, medial an kle and proximal ankle until clear. Next, top gloves and top sheet were changed and then 1/2 inch io doform gauze drains were then placed proximal and distal within the tendon sheath adjacent to the ten dons. The laciniate ligament and the flexor retinaculum was then closed loosely with interrupted 2-0 Vicryl sutures. The skin was then closed using interrupted 3-0 nylon sutures. A sterile compressiv e dressing was applied, overwrapped with an Blaise wrap. The tourniquet was released. The patient awak ened and taken to recovery in stable condition. Job ID: [id number]
[2021-05-05] MEDS: traMADol HCL 50 MG TABLET PO PRN (19:20)
[2021-05-05] MEDS: traZODone HCL 50 MG TAB PO SCH (20:33)
[2021-05-05] MEDS: MELATONIN 3 MG TAB PO SCH (20:34)
[2021-05-05] MEDS: ATORVASTATIN 40 MG TAB PO SCH (20:35)
[2021-05-05] MEDS: PRAMIPEXOLE DIHYDROCHLO 0.5 MG TAB PO SCH (20:35)
[2021-05-05] MEDS: CETIRIZINE HCL 10 MG TABLET PO SCH (20:35)
[2021-05-05] MEDS: hydrOXYzine HCl 25 MG TAB PO SCH (20:38)
[2021-05-05] MEDS: RIVAROXABAN 20 MG TAB PO SCH (21:06)
[2021-05-06] MEDS: MoRPHine SULFATE 2 MG/ML CARP IV PRN ×2 (03:16→10:10)
[2021-05-06] MEDS: traMADol HCL 50 MG TABLET PO PRN (05:33)
[2021-05-06] MEDS: LEVOTHYROXINE SODIUM 25 MCG TABLET PO SCH (05:34)
[2021-05-06] MEDS ORDERED: VANCOMYCIN TROUGH ONE (08:30)
--- NOTE | 2021-05-06 08:32 | Hospitalist Progress Note ---
Date of Service May 06, 2021 Assessment & Plan (1) CVA (cerebral vascular accident): Plan: Acute left facial droop, eye deviation to the right, slurred speech and LUE weakness present noticed just after 0800. Last known well time was 0530. Stroke alert called and events as above. Possible R middle cerebral stroke on CTA, confirmed no history of prior stroke [facility], per inpatient records, and per patient and her daughter Siri. Teleneurologist, Dr. Short felt there may be some acute on chronic stroke findings present and recommended immediate [place] [facility] [place] to determine the need for embolectomy. Daughter was updated and agrees with transfer. She was [place] [facility] [place] [facility] [place] due to weather. (2) Septic arthritis of ankle and foot region: Plan: Was seen and eval at [place] - awaiting records, dx with GOUT and prescribed prednisone, indomethacin and keflex for ? cellulitis pt w/o improvement obtain CT R Foot/ankle-soft tissue swelling without any abscess or osteomyelitis RLE venous doppler-negative for any thrombosis ESR is high at 60 and CRP is high at 17 Colchicine was initially given and then discontinued MRI of the right ankle did show possible septic arthritis Ortho consulted and FNA performed, initial cultures growing staph aureus with pending sensitivities. Pain meds PRN Continues on vanc empirically. She underwent washout on 05/[address] Rey Lopez. Culture growing MRSA. Continues on Vanc--drain in place, surgical bandage intact. Continue pain control efforts. (3) Chest pain: Plan: Initially present on admission, currently denies. Has CAD with h/o stent CXR with evidence of pulm vasc congestion possible in setting of HTN Urgency on admission (192/73)-one dose of Lasix 10mg IV given on 05/02 resolved her symptoms Recently noted by outpatient record review to have same issue by outpatient lithopone charger, resolved with furosemide. Cycled troponin for completeness-these were unremarkable EKG unremarkable for acute ischemia Echo has been-EF 55 to 60%, there is moderate concentric LV hypertrophy with hypokinesis of the base lateral wall, left atrium is severely dilated, aortic valve is mildly calcified, mild valvular aortic stenosis, there is mild mitral regurgitation, mild tricuspid regurgitation and estimated pulmonary systolic pressure is 53 mmHg. Continue metoprolol, Entresto, ASA, atorvastatin, Xarelto Denies any more chest pain and/or palpitation (4) Atrial fibrillation: Plan: Chronic atrial fibrillation with rate control on Toprol-XL, chronically anticoagulated with rivaroxaban. Anticoagulation on hold in setting of upcoming procedure. Restarted on night of 05/05 by surgery. Held for only one day. She continues to remain in atrial fibrillation on telemetry. (5) CHF (congestive heart failure): Plan: Chronic heart failure with preserved ejection fraction she has exertional weakness/fatigue and exertional dyspnea ongoing. She is followed by [facility] ardiology and was last seen 02/2021. She notably uses Lasix as needed if she gets a "chest heaviness" she typically uses it a few times a week and this resolves the issue for her. She typically takes Lasix as needed, and is currently not examining is volume overloaded, Appears compensated (6) Insomnia: Plan: continue melatonin, trazodone, hydroxyzine per home regimen. (7) RLS (restless legs syndrome): Plan: cont mirapex per home regimen. (8) DVT prophylaxis: Plan: rivaroxaban Full code Dispo[place] [facility] for "brain attack" and CT perfusion scan. Daughter Siri updated [facility]tic[facility]ated Discharge Date Admission Date: May 02, 2021 Subjective 81-year-old female presented with acute right ankle pain secondary to septic arthritis. STROKE ALERT: Patient was noted to have acute left facial droop and LUE w eakness. Last known well time was 0530 per night nurse assessment. The patient is mentating clearly but has slurred speech. She has deviation of her eyes to the right and deviation of her tongue to the right. She went for CT head and CT angio of head and neck. She has chronic atrial fibrillation and is currently in persistent atrial fibrillation. She is on Xarelto and missed one dose preproce dural prior to ankle washout yesterday. She has right ankle septic arthritis and is MRSA positive. Morphine 4mg IV given at 0316am and tramadol 25mg given at 0530am. Review of Systems Review of Systems: Cannot obtain ROS as patient is worsening with her speech capability. Physical Exam Physical Exam: CONSTITUTIONAL: WNWD, vitals as above, generally ill- appearing. EYES: eyes deviated to the right, PEERL, normal conjunctivae, no scleral icterus ENT: external ear and nose normal, tongue deviation to the right, mucous membranes are dry NECK: trachea midline RESPIRATORY: clear to auscultation bilaterally, no crackles, rales or wheezes, normal respiratory effort CARDIOVASCULAR: irregular rate and irregular rhythm, S1 and 2 heard without murmurs, gallops or rubs, no JVD, no peripheral edema GASTROINTESTINAL: soft, nontender, ND, no guarding MUSCULOSKELETAL: manager product marketing strength intact on right, 2/5 on left, LUE flaccid with 0/5 strength throughout, LLE strength 5/5 throughout, RUE strength 5/5 thr oughout, RLE strength 5/5 throughout, r ankle surgical bandage in place with ROGER wrap covering, +drain in place. head is normocephalic and atraumatic SKIN: warm and dry NEUROLOGIC: patellar DTRs 2+ bilat. + left facial palsy, + dysarthria. sensation altered on left face, arm and possibly left leg. normal cognition, speech altered but one can make out what she is saying, no tremor PSYCHIATRIC: alert cooperative and oriented to person, place and time. Results & Data Results & Data ([facility]) Vital Signs (Past 12 Hours) Vital Signs Temp Pulse Resp BP BP Pulse Ox 05/06/21 06:58 36.8 C 110 H 20 142/69 H 96 05/06/21 03:10 36.9 C 67 18 158/65 H 96 05/05/21 23:12 37.2 C 105 H 18 154/70 H 96 Laboratory Results Short CBC 05/06/21 Range/Units 08:56 WBC 12.12 H (4.8-10.8) K/uL Hgb 11.2 L (12.0-16.0) g/dL Hct 35.5 L (37-47) % Plt Count 281 (130-400) K/uL BMP 05/06/21 08:56 Sodium 134 L Potassium 3.8 Chloride 97 L Carbon Dioxide 31 BUN 7 Creatinine 0.46 L Glucose 98 Calcium 7.7 L Cardiac Enzymes 05/06/21 Range/Units 08:56 Troponin I < 0.015 (0-0.045) ng/ml Diagnostic Findings Head CT 05/06/21 08:24 CT SCAN OF THE BRAIN WITHOUT IV CONTRAST CLINICAL HISTORY: Strokelike symptoms. COMPARISON STUDY: No priors. TECHNIQUE: Unenhanced axial CT scan of the brain is performed from the vertex to the skull base. A dose lowering technique was utilized adhering to the principles of ALARA. FINDINGS: Brain parenchyma: Right temporal encephalomalacia is consistent with a remote insult. Chronic lacunar infarcts are noted in the left caudate head, the left cerebellar hemisphere, and the left basal ganglia. There are age-related involutional changes noting mild to moderate patchy subcortical and periventricular microangiopathic change. There is no hemorrhage, mass effect, or evidence of acute territorial ischemia by CT criteria. Alvarenga-white matter differentiation is preserved. No extra-axial fluid collection is seen. Ventricles, sulci, cisterns: Prominent secondary to involutional change. Intracranial vasculature: There is atherosclerotic calcification of the cavernous carotid and vertebral arteries. Calvarium: Unremarkable. Sinuses and mastoids: The visualized paranasal sinuses are clear. The mastoid air cells are well pneumatized. Orbits: The bony orbits are grossly intact. There are bilateral ocular lens implants. IMPRESSION: There is no hemorrhage, mass effect, or evidence of acute territorial ischemia by CT criteria. ACT 112: Negative or not required by law. Electronically signed by: Donnie Reyes M.D. 05/06/2021 8:44 AM Head CTA 05/06/21 08:30 CT ANGIOGRAM OF THE BRAIN; CT ANGIOGRAM OF THE NECK CLINICAL HISTORY: Left-sided weakness. Stroke like symptoms. COMPARISON STUDY: Unenhanced CT of the brain performed concurrently on 05/06/2021. TECHNIQUE: Following the IV administration of 120 of Optiray 320, CT angiogram of the head and neck was performed from the aortic arch to the vertex. Images are reviewed in the axial, sagittal, and coronal planes. 3-D MIPS images are created and assessed. IV contrast was administered without complication. All measurements were calculated based on NASCET criteria. A dose lowering technique was utilized adhering to the principles of ALARA. The patient was scanned twice due to motion artifact. The CT angiogram of the neck is sign ificantly motion compromised. 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 Chronic lacunar infarcts are noted in the left caudate head, the left cerebellar hemisphere, and the left basal ganglia. There are age-related involutional changes noting mild to moderate patchy subcortical and periventricular microangiopathic change. There is no evidence of hemorrhage, mass effect, or acute territorial ischemia noting angiographic phase technique. Alvarenga-white matter differentiation is preserved. No extra-axial fluid collection is seen.. The ventricles, sulci, and cisterns are prominent secondary to involutional change. Thoracic aorta: There is atherosclerotic calcification of the thoracic aorta. Visualized portions of the thoracic aorta are normal in caliber. The aortic arch demonstrates standard 3-vessel anatomy. Right carotid arterial system: The right common carotid artery is widely patent. There is advanced atherosclerotic plaque in the carotid bulb. This level significantly motion compromised. There is approximately 50-75% focal stenosis at the origin of the right internal carotid artery. The remainder of the internal carotid artery is patent, as is the right external carotid artery. Left carotid arterial system: The left common carotid artery is widely patent. There is advanced atherosclerotic plaque in the carotid bulb. This causes 50-75% focal stenosis at the origin of the left internal carotid artery. This is not well-visualized due to motion artifact. The remainder of the internal carotid artery is patent, as is the external carotid artery. Vertebral arteries: The vertebral arteries are patent bilaterally noting a right-sided dominance. Subclavian arteries: Widely patent bilaterally. Intracranial vasculature: There is atherosclerotic calcification of the cavernous carotid and vertebral arteries. The internal carotid arteries are patent at the skull base, as are the anterior and left middle cerebral arteries bilaterally. Suspect cut-off/focal occlusion of a branch of the M2 segment of the right middle cerebral artery in the anterior temporal fossa, best seen on image #116. The remainder of the right middle cerebral artery appears patent. The vertebrobasilar system and posterior cerebral arteries are patent. The right vertebral artery is dominant. There is no aneurysm is seen throughout the intracranial circulation. Jugular veins: Patent bilaterally. Dural sinuses: Patent. Lung apices: Emphysematous change is noted. Upper lobe lung parenchyma is otherwise clear as imaged noting significant motion artifact. Soft tissues: The visualized pharyngeal soft tissues are normal in appearance noting angiographic phase technique. The oropharyngeal airway appears widely patent. The salivary and thyroid glands are normal in appearance. No cervical lymphadenopathy is seen. Skeletal structures: The skeletal structures are osteopenic. The calvarium appears intact. The cervical spine is maintained noting multilevel spondylosis. No lytic or blastic lesion is seen. Orbits: The bony orbits are intact. Orbital contents are normal as visualized noting bilateral ocular lens implants. Sinuses and mastoids: There is trace mucosal thickening in the left maxillary antrum. The remaining paranasal sinuses are clear. The mastoid air cells are well pneumatized. IMPRESSION: 1. The CT angiogram of the neck is significantly motion compromised. 2. There is no evidence of hemorrhage, mass effect, or acute territorial ischemia noting angiographic phase technique. 3. Suspect cut-off/focal occlusion of an M2 branch of the right middle cerebral artery in the anterior temporal fossa. This is of indeterminant chronicity given the history of previous right temporal lobe stroke but may be acute. Clinical correlation will be essential. 4. Otherwise unremarkable CT angiogram of the brain. 5. There is stenosis at the origin of both internal carotid arteries, likely at least 50-75% bilaterally. This is difficult to evaluate due to significant motion artifact and calcified plaque. Ultrasound could be considered for reassessment. 6. Emphysema. ACT 112: Negative or not required by law. Electronically signed by: Donnie Reyes M.D. 05/06/2021 9:07 AM Neck CTA 05/06/21 08:30 CT ANGIOGRAM OF THE BRAIN; CT ANGIOGRAM OF THE NECK CLINICAL HISTORY: Left-sided weakness. Stroke like symptoms. COMPARISON STUDY: Unenhanced CT of the brain performed concurrently on 05/06/2021. TECHNIQUE: Following the IV administration of 120 of Optiray 320, CT angiogram of the head and neck was performed from the aortic arch to the vertex. Images are reviewed in the axial, sagittal, and coronal planes. 3-D MIPS images are created and assessed. IV contrast was administered without complication. All measurements were calculated based on NASCET criteria. A dose lowering technique was utilized adhering to the principles of ALARA. The patient was scanned twice due to motion artifact. The CT angiogram of the neck is significantly motion compromised. 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 Chronic lacunar infarcts are noted in the left caudate head, the left cerebellar hemisphere, and the left basal ganglia. There are age-related involu tional changes noting mild to moderate patchy subcortical and periventricular microangiopathic change. There is no evidence of hemorrhage, mass effect, or acute territorial ischemia noting angiographic phase technique. Alvarenga-white matter differentiation is preserved. No extra-axial fluid collection is seen.. The ventricles, sulci, and cisterns are prominent secondary to involutional change. Thoracic aorta: There is atherosclerotic calcification of the thoracic aorta. Visualized portions of the thoracic aorta are normal in caliber. The aortic arch demonstrates standard 3-vessel anatomy. Right carotid arterial system: The right common carotid artery is widely patent. There is advanced atherosclerotic plaque in the carotid bulb. This level significantly motion compromised. There is approximately 50-75% focal stenosis at the origin of the right internal carotid artery. The remainder of the internal carotid artery is patent, as is the right external carotid artery. Left carotid arterial system: The left common carotid artery is widely patent. There is advanced atherosclerotic plaque in the carotid bulb. This causes 50-75% focal stenosis at the origin of the left internal carotid artery. This is not well-visualized due to motion artifact. The remainder of the internal carotid artery is patent, as is the external carotid artery. Vertebral arteries: The vertebral arteries are patent bilaterally noting a right-sided dominance. Subclavian arteries: Widely patent bilaterally. Intracranial vasculature: There is atherosclerotic calcification of the cavernous carotid and vertebral arteries. The internal carotid arteries are patent at the skull base, as are the anterior and left middle cerebral arteries bilaterally. Suspect cut-off/focal occlusion of a branch of the M2 segment of the right middle cerebral artery in the anterior temporal fossa, best seen on image #116. The remainder of the right middle cerebral artery appears patent. The vertebrobasilar system and posterior cerebral arteries are patent. The right vertebral artery is dominant. There is no aneurysm is seen throughout the intracranial circulation. Jugular veins: Patent bilaterally. Dural sinuses: Patent. Lung apices: Emphysematous change is noted. Upper lobe lung parenchyma is otherwise clear as imaged noting significant motion artifact. Soft tissues: The visualized pharyngeal soft tissues are normal in appearance noting angiographic phase technique. The oropharyngeal airway appears widely patent. The salivary and thyroid glands are normal in appearance. No cervical lymphadenopathy is seen. Skeletal structures: The skeletal structures are osteopenic. The calvarium appears intact. The cervical spine is maintained noting multilevel spondylosis. No lytic or blastic lesion is seen. Orbits: The bony orbits are intact. Orbital contents are normal as visualized noting bilateral ocular lens implants. Sinuses and mastoids: There is trace mucosal thickening in the left maxillary antrum. The remaining paranasal sinuses are clear. The mastoid air cells are well pneumatized. IMPRESSION: 1. The CT angiogram of the neck is significantly motion compromised. 2. There is no evidence of hemorrhage, mass effect, or acute territorial ischemia noting angiographic phase technique. 3. Suspect cut-off/focal occlusion of an M2 branch of the right middle cerebral artery in the anterior temporal fossa. This is of indeterminant chronicity given the history of previous right temporal lobe stroke but may be acute. Clinical correlation will be essential. 4. Otherwise unremarkable CT angiogram of the brain. 5. There is stenosis at the origin of both internal carotid arteries, likely at least 50-75% bilaterally. This is difficult to evaluate due to significant motion artifact and calcified plaque. Ultrasound could be considered for reassessment. 6. Emphysema. ACT 112: Negative or not required by law. Electronically signed by: Donnie Reyes M.D. 05/06/2021 9:07 AM Medications Administered Current Inpatient Medications Acetaminophen (Acetaminophen 325 Mg Tab) 650 mg PO Q4H PRN PRN Reason: Pain or Fever Stop: 06/01/21 20:08 Al Hydrox/Mg Hydrox/Simethicone (Aluminum/Magnesium Susp 30 Ml Udc) 15 ml PO Q4H PRN PRN Reason: Dyspepsia Stop: 06/01/21 20:08 Aspirin (Aspirin 81 Mg Ectab) 81 mg PO DAILY ZOEY Stop: 06/02/21 08:59 Last Admin: 05/05/21 09:08 Dose: 81 mg Documented by: Atorvastatin Calcium (Atorvastatin 40 Mg Tab) 40 mg PO HS ZOEY Stop: 06/01/21 20:59 Last Admin: 05/05/21 20:35 Dose: 40 mg Documented by: Cetirizine HCl (Cetirizine Hcl 10 Mg Tablet) 10 mg PO PM ZOEY Stop: 06/01/21 20:59 Last Admin: 05/05/21 20:35 Dose: 10 mg Documented by: Hydroxyzine HCl (Hydroxyzine Hcl 25 Mg Tab) 25 mg PO HS ZOEY Stop: 06/01/21 20:59 Last Admin: 05/05/21 20:38 Dose: 25 mg Documented by: Vancomycin HCl 1,250 mg/ (Sodium Chloride) 275 mls @ 125 mls/hr IV Q12H ZOEY; Protocol Stop: 06/15/21 20:59 Last Infusion: 05/05/21 22:45 Dose: Infused Documented by: Lactobacillus Acidoph/Casei/Rhamnos (Advanced Probiotic 1250 Mg Capsule) 2 cap PO BID [facility] Stop: 06/01/21 20:59 Last Admin: 05/05/21 20:34 Dose: 2 cap Documented by: Levothyroxine Sodium (Levothyroxine Sodium 25 Mcg Tablet) 25 mcg PO DAILYBB [facility] Stop: 06/02/21 06:29 Last Admin: 05/06/21 05:34 Dose: 25 mcg Documented by: Magnesium Hydroxide (Magnesium Hydroxide Susp 30 Ml Udc) 30 ml PO Q12H PRN PRN Reason: Constipation Stop: 06/01/21 20:08 Melatonin (Melatonin 3 Mg Tab) 6 mg PO HS [facility] Stop: 06/01/21 20:59 Last Admin: 05/05/21 20:34 Dose: 6 mg Documented by: Metoprolol Succinate (Metoprolol Succ 25mg Ext Rel Tab) 125 mg PO DAILY [facility] Stop: 06/02/21 08:59 Last Admin: 05/05/21 09:00 Dose: Not Given Documented by: Miscellaneous Information (Vancomycin Consult Active) 1 ea N/A UD PRN PRN Reason: Consult Stop: 06/03/21 07:18 Montelukast Sodium (Montelukast Sodium 10 Mg Tablet) 10 mg PO DAILY [facility] Stop: 06/02/21 08:59 Last Admin: 05/05/21 09:08 Dose: 10 mg Documented by: Morphine Sulfate (Morphine Sulfate 2 Mg/Ml Carp) 4 mg IV Q3H PRN PRN Reason: Severe Pain Stop: 05/16/21 20:08 Last Admin: 05/06/21 03:16 Dose: 4 mg Documented by: Multivitamins/Minerals (Calcium 600mg + Vit D 400 Iu Tab) 1 tab PO DAILY [facility] Stop: 06/02/21 08:59 Last Admin: 05/05/21 09:07 Dose: 1 tab Documented by: Multivitamins/Minerals (Cerovite Adv Formula Tab) 1 tab PO BID [facility] Stop: 06/01/21 20:59 Last Admin: 05/05/21 20:36 Dose: 1 tab Documented by: Ondansetron HCl (Ondansetron Inj 2 Mg/Ml 2 Ml Vial) 4 mg IV Q6H PRN PRN Reason: Nausea Stop: 06/01/21 20:08 Pantoprazole Sodium (Pantoprazole 40 Mg Tab) 40 mg PO DAILY ZOEY Stop: 06/02/21 08:59 Last Admin: 05/05/21 09:07 Dose: 40 mg Documented by: Polyethylene Glycol (Polyethylene (Miralax) 17 Gm Pack) 17 gm PO DAILY PRN PRN Reason: Constipation Stop: 06/01/21 20:08 Pramipexole Dihydrochloride (Pramipexole Dihydrochlo 0.25 Mg Tab) 0.25 mg PO DAILY ZOEY Stop: 06/02/21 08:59 Last Admin: 05/05/21 09:08 Dose: 0.25 mg Documented by: Pramipexole Dihydrochloride (Pramipexole Dihydrochlo 0.5 Mg Tab) 0.5 mg PO HS ZOEY Stop: 06/01/21 20:59 Last Admin: 05/05/21 20:35 Dose: 0.5 mg Documented by: Rivaroxaban (Rivaroxaban 20 Mg Tab) 20 mg PO PM ZOEY Stop: 06/01/21 20:59 Last Admin: 05/05/21 21:06 Dose: 20 mg Documented by: Sacubitril/Valsartan (Valsartan/Sacubitril 26/24mg Tab) 1 tab PO BID [facility]OE[facility] Stop: 06/01/21 20:59 Last Admin: 05/05/21 20:34 Dose: 1 tab Documented by: Tramadol HCl (Tramadol Hcl 50 Mg Tablet) 25 mg PO Q6H PRN PRN Reason: Pain Stop: 06/02/21 01:23 Last Admin: 05/06/21 05:33 Dose: 25 mg Documented by: Trazodone HCl (Trazodone Hcl 50 Mg Tab) 150 mg PO HS ZOEY Stop: 06/01/21 20:59 Last Admin: 05/05/21 20:33 Dose: 150 mg Documented by: Venlafaxine HCl (Venlafaxine Hcl Xr 75 Mg Capxr) 75 mg PO DAILY ZOEY Stop: 06/02/21 08:59 Last Admin: 05/05/21 09:07 Dose: 75 mg Documented by: (1) Chest pain Chest pain type: unspecified Qualified Code(s): R07.9 - Chest pain, unspecified
[2021-05-06] MEDS ORDERED: OPTIRAY 320 125ml IV ONE (08:45)
--- NOTE | 2021-05-06 08:46 | CT Scan Report ---
CT SCAN OF THE BRAIN WITHOUT IV CONTRAST CLINICAL HISTORY: Strokelike symptoms. COMPARISON STUDY: No priors. TECHNIQUE: Unenhanced axial CT scan of the brain is performed from the vertex to the skull base. A do se lowering technique was utilized adhering to the principles of ALARA. FINDINGS: Brain parenchyma: Right temporal encephalomalacia is consistent with a remote insult. Chronic lacunar infarcts are noted in the left caudate head, the left cerebellar hemisphere, and the left basal gang bhupinder. There are age-related involutional changes noting mild to moderate patchy subcortical and periv entricular microangiopathic change. There is no hemorrhage, mass effect, or evidence of acute territo rial ischemia by CT criteria. Alvarenga-white matter differentiation is preserved. No extra-axial fluid co llection is seen. Ventricles, sulci, cisterns: Prominent secondary to involutional change. Intracranial vasculature: There is atherosclerotic calcification of the cavernous carotid and vertebr al arteries. Calvarium: Unremarkable. Sinuses and mastoids: The visualized paranasal sinuses are clear. The mastoid air cells are well pneu matized. Orbits: The bony orbits are grossly intact. There are bilateral ocular lens implants. IMPRESSION: There is no hemorrhage, mass effect, or evidence of acute territorial ischemia by CT paramjitt gwen. ACT 112: Negative or not required by law. Electronically signed by: Donnie Reyes M.D. 05/06/2021 8:44 AM
[2021-05-06 09:07] LABS: Hematocrit (blood only) 35.5 % (37-47); Hemoglobin 11.2 g/dL (12.0-16.0); Mean Corpuscular Hemoglobin 31.4 pg (25-34); Mean Corpuscular Volume 99.4 fL (80-100); Mean Platelet Volume 8.9 fL (7.4-10.4); Platelet Count 281 K/uL (130-400); RDW Coefficient of Variation 13.4 % (11.5-14.5); RDW Standard Deviation 48.9 fL (36.4-46.3); Red Blood Count 3.57 M/uL (4.2-5.4); White Blood Count 12.12 K/uL (4.8-10.8)
--- NOTE | 2021-05-06 09:08 | CT Scan Report ---
CT ANGIOGRAM OF THE BRAIN; CT ANGIOGRAM OF THE NECK CLINICAL HISTORY: Left-sided weakness. Stroke like symptoms. COMPARISON STUDY: Unenhanced CT of the brain performed concurrently on 05/06/2021. TECHNIQUE: Following the IV administration of 120 of Optiray 320, CT angiogram of the head and neck w as performed from the aortic arch to the vertex. Images are reviewed in the axial, sagittal, and tiffanie nal planes. 3-D MIPS images are created and assessed. IV contrast was administered without complicati on. All measurements were calculated based on NASCET criteria. A dose lowering technique was utilize d adhering to the principles of ALARA. The patient was scanned twice due to motion artifact. The CT a ngiogram of the neck is significantly motion compromised. 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 Chronic lacunar infarcts are noted in the left caudate head, the left cerebellar hemisphere, and the left basal gang bhupinder. There are age-related involutional changes noting mild to moderate patchy subcortical and periv entricular microangiopathic change. There is no evidence of hemorrhage, mass effect, or acute territo rial ischemia noting angiographic phase technique. Alvarenga-white matter differentiation is preserved. No extra-axial fluid collection is seen.. The ventricles, sulci, and cisterns are prominent secondary t o involutional change. Thoracic aorta: There is atherosclerotic calcification of the thoracic aorta. Visualized portions of the thoracic aorta are normal in caliber. The aortic arch demonstrates standard 3-vessel anatomy. Right carotid arterial system: The right common carotid artery is widely patent. There is advanced at herosclerotic plaque in the carotid bulb. This level significantly motion compromised. There is appro ximately 50-75% focal stenosis at the origin of the right internal carotid artery. The remainder of t he internal carotid artery is patent, as is the right external carotid artery. Left carotid arterial system: The left common carotid artery is widely patent. There is advanced athe rosclerotic plaque in the carotid bulb. This causes 50-75% focal stenosis at the origin of the left i nternal carotid artery. This is not well-visualized due to motion artifact. The remainder of the inte rnal carotid artery is patent, as is the external carotid artery. Vertebral arteries: The vertebral arteries are patent bilaterally noting a right-sided dominance. Subclavian arteries: Widely patent bilaterally. Intracranial vasculature: There is atherosclerotic calcification of the cavernous carotid and vertebr al arteries. The internal carotid arteries are patent at the skull base, as are the anterior and left middle cerebral arteries bilaterally. Suspect cut-off/focal occlusion of a branch of the M2 segment of the right middle cerebral artery in the anterior temporal fossa, best seen on image #[id number]. The martín macho of the right middle cerebral artery appears patent. The vertebrobasilar system and posterior ce rebral arteries are patent. The right vertebral artery is dominant. There is no aneurysm is seen thro ughout the intracranial circulation. Jugular veins: Patent bilaterally. Dural sinuses: Patent. Lung apices: Emphysematous change is noted. Upper lobe lung parenchyma is otherwise clear as imaged n oting significant motion artifact. Soft tissues: The visualized pharyngeal soft tissues are normal in appearance noting angiographic pha se technique. The oropharyngeal airway appears widely patent. The salivary and thyroid glands are nor mal in appearance. No cervical lymphadenopathy is seen. Skeletal structures: The skeletal structures are osteopenic. The calvarium appears intact. The cervic al spine is maintained noting multilevel spondylosis. No lytic or blastic lesion is seen. Orbits: The bony orbits are intact. Orbital contents are normal as visualized noting bilateral ocular lens implants. Sinuses and mastoids: There is trace mucosal thickening in the left maxillary antrum. The remaining p aranasal sinuses are clear. The mastoid air cells are well pneumatized. IMPRESSION: 1. The CT angiogram of the neck is significantly motion compromised. 2. There is no evidence of hemorrhage, mass effect, or acute territorial ischemia noting angiographic phase technique. 3. Suspect cut-off/focal occlusion of an M2 branch of the right middle cerebral artery in the anterio r temporal fossa. This is of indeterminant chronicity given the history of previous right temporal lo be stroke but may be acute. Clinical correlation will be essential. 4. Otherwise unremarkable CT angiogram of the brain. 5. There is stenosis at the origin of both internal carotid arteries, likely at least 50-75% bilatera lly. This is difficult to evaluate due to significant motion artifact and calcified plaque. Ultrasoun d could be considered for reassessment. 6. Emphysema. ACT 112: Negative or not required by law. Electronically signed by: Donnie Reyes M.D. 05/06/2021 9:07 AM
[2021-05-06 09:10] LABS: Mean Corpuscular Hgb Conc 31.5 g/dL (32-36)
[2021-05-06 09:15] LABS: INR 1.5 (0.9-1.1)
[2021-05-06 09:37] LABS: BUN Creatinine Ratio 15.4 (10-20); Blood Urea Nitrogen 7 mg/dl (7-18); Calcium 7.7 mg/dl (8.5-10.1); Carbon Dioxide 31 mmol/L (21-32); Chloride 97 mmol/L (98-107); Creatinine Clr Calc Pharmacy 102.5 ml/min; Est GFR (African American) 109.7 ml/min; Est GFR (Non-African American) 94.6 ml/min; Glucose 98 mg/dl (70-99); Potassium 3.8 mmol/L (3.5-5.1); Sodium 134 mmol/L (136-145)
[2021-05-06 09:41] LABS: Troponin I < 0.015 ng/ml (0-0.045)
--- NOTE | 2021-05-06 09:59 | Discharge Summary ---
Date of Service May 06, 2021 Admission HPI Per Admitting Provider This is a 81-year-old female who has significant past medical history of CAD with history of stenting, persistent atrial fibrillation, RLS, insomnia, CHF, HTN, HLD, hypothyroidism who presents to ED after complaining of right foot pain x3 days and chest pain x1 day. Of significance patient was seen in [place] ER over the weekend and records are still pending from this visit. She states that she presented to ED due to right foot pain. She was diagnosed with acute gout, prescribed prednisone, indomethacin and Keflex. She has not noticed any improvement in regards to pain of her right foot, is having inability to walk and denies any improvement in redness or swelling. Typically she ambulates without assist device at baseline, but is currently having difficulty getting out of chair due to pain. Today pain was so severe that she took 5 extra strength Tylenol. After taking the Tylenol she felt, "funny in her chest," and had a burning sensation. She called PCP in regards to the chest sensation and was told to go to ER for further evaluation. She was brought to ER with her daughter who is currently at bedside. Daughter does help patient take her medications. She did not take any medications today. She denies any fever, chills, sweats, lightheadedness, dizziness, shortness of breath, edie chest pain, nausea, vomiting, abdominal pain, change in bowel or urinary habits. Her appetite and weight has been stable. She is prescribed Lasix to take as needed but has not currently required. She states she typically takes it twice a week. In ED she remained hemodynamically stable. Her blood pressure was significantly elevated likely due to not taking meds and pain. Her CBC and CMP was generally unremarkable. Her chest x-ray revealed cardiomegaly with pulmonary vascular congestion small pleural effusions. She did receive IV morphine in ED which improved pain. She is currently chest pain-free and has been since arrival. Admission Exam Per Admitting Provider Exam: Mild distress due to pain Lungs: CTA, no wheezing or crackles Cardiac: normal S1/S2, no murmur Abd: Soft, ND, NT MSK: no swelling on the L leg, diffuse swelling of the R foot, ankle and distal leg; it is warm and TTP Psych: AAOx3 Principal Diagnosis Acute R MCA stroke Septic arthritis of ankle and foot region s/p washout on 05/05 Chest pain Chronic atrial fibrillation on Xarelto Chronic CHF with preserved EF Discharge Exam CONSTITUTIONAL: WNWD, vitals as above, generally ill-appearing. EYES: eyes deviated to the right, PEERL, normal conjunctivae, no scleral icterus ENT: external ear and nose normal, tongue deviation to the right, mucous membranes are dry NECK: trachea midline RESPIRATORY: clear to auscultation bilaterally, no crackles, rales or wheezes, normal respiratory effort CARDIOVASCULAR: irregular rate and irregular rhythm, S1 and 2 heard without murmurs, gallops or rubs, no JVD, no peripheral edema GASTROINTESTINAL: soft, nontender, ND, no guarding MUSCULOSKELETAL: straight knife machine cutter strength intact on right, 2/5 on left, LUE flaccid with 0/5 strength throughout, LLE strength 5/5 throughout, RUE strength 5/5 throughout, RLE strength 5/5 throughout, r ankle surgical bandage in place with ROGER wrap covering, +drain in place. head is normocephalic and atraumatic SKIN: warm and dry NEUROLOGIC: patellar DTRs 2+ bilat. + left facial palsy, + dysarthria. sensation altered on left face, arm and possibly left leg. normal cognition, speech altered but one can make out what she is saying, no tremor PSYCHIATRIC: alert cooperative and oriented to person, place and time. (0700) BP 142/69, P 110, RR 20, T 36.8 C, 96% on 3LPM via CA Discharge Data Allergies Allergy/AdvReac Type Severity Reaction Status Date / Time weed pollen Allergy Intermediate Verified 04/19/21 09:08 Consultations 05/02/21 17:14 ED Decision to Admit Stat 05/03/21 10:09 Consult Orthopedic Surgery Routine 05/06/21 09:22 Burn CD for patient Stat Procedures Performed Operation Date: 05/05/21 10:35 Actual Procedures p Arthroscopic Irrigation and Debridement Right Ankle, Open Incision and Drainage Abscess of the Medial Ankle and Tenosynovectomy Septic Flexor Hallicus Longus and Septic Flexor Digitorum Longus Tendons(Right) - Aaron Lopez, Ordered Studies Laboratory Results WBC 12.12 K/uL (4.8-10.8) H 05/06/21 08:56 RBC 3.57 M/uL (4.2-5.4) L 05/06/21 08:56 Hgb 11.2 g/dL (12.0-16.0) L 05/06/21 08:56 Hct 35.5 % (37-47) L 05/06/21 08:56 MCV 99.4 fL (80-100) 05/06/21 08:56 MCH 31.4 pg (25-34) 05/06/21 08:56 MCHC 31.5 g/dL (32-36) L 05/06/21 08:56 RDW Std Deviation 48.9 fL (36.4-46.3) H 05/06/21 08:56 RDW Coeff of Evelyn 13.4 % (11.5-14.5) 05/06/21 08:56 Plt Count 281 K/uL (130-400) 05/06/21 08:56 MPV 8.9 fL (7.4-10.4) 05/06/21 08:56 Immature Gran % (Auto) 0.2 % 05/05/21 05:37 Neut % (Auto) 70.7 % 05/05/21 05:37 Lymph % (Auto) 11.9 % 05/05/21 05:37 [place] % (Auto) 9.2 % 05/05/21 05:37 Eos % (Auto) 7.8 % 05/05/21 05:37 Baso % (Auto) 0.2 % 05/05/21 05:37 Neut # (Auto) 6.44 K/uL (1.4-6.5) 05/05/21 05:37 Lymph # (Auto) 1.08 K/uL (1.2-3.4) L 05/05/21 05:37 [place] # (Auto) 0.84 K/uL (0.11-0.59) H 05/05/21 05:37 Eos # (Auto) 0.71 K/uL (0-0.5) H 05/05/21 05:37 Baso # (Auto) 0.02 K/uL (0-0.2) 05/05/21 05:37 Immature Gran # (Auto) 0.02 K/uL (0.00-0.02) 05/05/21 05:37 ESR 60 mm/hr (0-30) H 05/02/21 13:17 PT 15.0 Seconds (9.0-12.0) H 05/06/21 08:56 INR 1.5 (0.9-1.1) H 05/06/21 08:56 APTT 24.8 Seconds (21.0-31.0) 05/02/21 13:17 PTT Ratio 0.9 05/02/21 13:17 Sodium 134 mmol/L (136-145) L 05/06/21 08:56 Potassium 3.8 mmol/L (3.5-5.1) 05/06/21 08:56 Chloride 97 mmol/L (98-107) L 05/06/21 08:56 Carbon Dioxide 31 mmol/L (21-32) 05/06/21 08:56 Anion Gap 6.0 (3-11) 05/06/21 08:56 BUN 7 mg/dl (7-18) 05/06/21 08:56 Creatinine 0.46 mg/dl (0.6-1.2) L 05/06/21 08:56 Est Cr Clr Drug Dosing 102.5 ml/min 05/06/21 08:56 Est GFR ( Amer) 109.7 ml/min 05/06/21 08:56 Est GFR (Non-Af Amer) 94.6 ml/min 05/06/21 08:56 BUN/Creatinine Ratio 15.4 (10-20) 05/06/21 08:56 Glucose 98 mg/dl (70-99) 05/06/21 08:56 Uric Acid 2.7 mg/dl (2.6-7.2) 05/02/21 13:17 Calcium 7.7 mg/dl (8.5-10.1) L 05/06/21 08:56 Magnesium 2.3 mg/dl (1.8-2.4) 05/05/21 05:37 Total Bilirubin 0.9 mg/dl (0.2-1) 05/05/21 05:37 AST 104 U/L (15-37) H 05/05/21 05:37 ALT 84 (12-78) H 05/05/21 05:37 Alkaline Phosphatase 76 U/L (45-117) 05/05/21 05:37 Troponin I < 0.015 ng/ml (0-0.045) 05/06/21 08:56 C-Reactive Protein 17.60 mg/dl (0-0.29) H 05/02/21 18:30 NT-Pro-B Natriuret Pep 1475 pg/ml (0-1800) 05/02/21 13:17 Total Protein 5.9 gm/dl (6.4-8.2) L 05/05/21 05:37 Albumin 2.0 gm/dl (3.4-5.0) L 05/05/21 05:37 Globulin 3.9 gm/dl (2.5-4.0) 05/05/21 05:37 Albumin/Globulin Ratio 0.5 (0.9-2) L 05/05/21 05:37 Fluid Comment 05/04/21 Unknown Synovial Source OTHER ANKLE 05/04/21 Unknown Synovial Color RED 05/04/21 Unknown Synovial Appearance BLOODY 05/04/21 Unknown Synovial WBC 136515 /ul (0-200) H 05/04/21 Unknown Synovial RBC [id number] /uL 05/04/21 Unknown Synovial Polynuclear % 93.7 % 05/04/21 Unknown Synovial Mononuclear % 6.3 % 05/04/21 Unknown Synovial Crystals 05/04/21 Unknown Vancomycin Trough 11.1 mcg/ml (See Comment) 05/06/21 08:56 SARS-CoV-2, RNA, NAAT NEGATIVE (NEGATIVE) 05/02/21 17:13 Impressions Chest X-Ray 05/02/21 13:09 XR chest 2V PA/lateral HISTORY: 81 years-old Female Chest Pain acute atypical chest pain COMPARISON: None TECHNIQUE: AP and lateral views of the chest FINDINGS: The cardiac silhouette is enlarged. Calcified plaque of the thoracic aorta. No pneumothorax. Small pleural effusions. Mild pulmonary vascular congestion. Linear subsegmental left basilar opacities. Degenerative changes of the shoulders and spine. IMPRESSION: 1. Cardiomegaly with pulmonary vascular congestion and small pleural effusions. 2. Mild linear subsegmental atelectasis/scarring of the lingula. ACT 112: Negative or not required by law. The above report was generated using voice recognition software. It may contain grammatical, syntax or spelling errors. Electronically signed by: Han Roy M.D. 05/02/2021 1:[address] 05/02/21 17:[address], RIGHT FOOT CT CT DOSE: 255.60 mGy.cm HISTORY: Right ankle and foot pain, edema, redness TECHNIQUE: Multiaxial CT images of the right ankle and right foot were performed and reformatted in the sagittal and coronal plane without the use of contrast. A dose lowering technique was utilized adhering to the principles of ALARA. COMPARISON: None. FINDINGS: Extensive subcutaneous edema seen throughout the right ankle and right foot. No loculated fluid collections on this noncontrast study to suggest an abscess. Vascular calcifications are noted. The Achilles, flexor, extensor, and peroneal tendons appear grossly intact by CT. No acute fracture or dislocation within the right ankle or right foot. Mild degenerative changes seen within the tibiotalar joint and throughout the majority of the foot. No destructive changes to suggest an osteomyelitis. IMPRESSION: 1. Extensive subcutaneous edema seen throughout the right ankle and foot. 2. No fracture or dislocation. 3. No evidence for osteomyelitis. 4. Mild osteoarthritis. ACT 112: Negative or not required by law. Electronically signed by: Patrice Lockett M.D. 05/02/2021 8:[address] 05/02/21 17:[address], RIGHT FOOT CT CT DOSE: 255.60 mGy.cm HISTORY: Right ankle and foot pain, edema, redness TECHNIQUE: Multiaxial CT images of the right ankle and right foot were performed and reformatted in the sagittal and coronal plane without the use of contrast. A dose lowering technique was utilized adhering to the principles of ALARA. COMPARISON: None. FINDINGS: Extensive subcutaneous edema seen throughout the right ankle and right foot. No loculated fluid collections on this noncontrast study to suggest an abscess. Vascular calcifications are noted. The Achilles, flexor, extensor, and peroneal tendons appear grossly intact by CT. No acute fracture or dislocation within the right ankle or right foot. Mild degenerative changes seen within the tibiotalar joint and throughout the majority of the foot. No destructive changes to suggest an osteomyelitis. IMPRESSION: 1. Extensive subcutaneous edema seen throughout the right ankle and foot. 2. No fracture or dislocation. 3. No evidence for osteomyelitis. 4. Mild osteoarthritis. ACT 112: Negative or not required by law. Electronically signed by: Patrice Lockett M.D. 05/02/2021 8:15 PM Venous Doppler Study 05/02/21 17:50 RIGHT LOWER EXTREMITY VENOUS DOPPLER HISTORY: Right leg edema COMPARISON STUDY: None. FINDINGS: There is normal compressibility, flow, and augmentation within the right lower extremity deep venous system. IMPRESSION: No DVT within the right lower extremity ACT 112: Negative or not required by law. Electronically signed by: Patrice Lockett M.D. 05/02/2021 7:03 PM Ankle MRI 05/03/21 16:01 MR ankle RT wo/w con CLINICAL HISTORY: r/o septic joint/tenosynovitis TECHNIQUE: Multisequence, multiplanar MR images of the right ankle were obtained with and without contrast. COMPARISON: None available at the time of this dictation. FINDINGS: Extensive soft tissue edema is seen compatible with history of cellulitis. Diffuse enhancement is noted in the soft tissues as well. Tendon sheath fluid and and peritendinous enhancement is seen most prominently in the flexor hallucis longus and flexor digitorum longus tendons. No marrow edema or erosion is seen to suggest osteomyelitis. There is an ankle joint effusion with synovial enhancement noted. Ligaments and tendons appear intact. IMPRESSION: 1. Diffuse cellulitis with tenosynovitis most prominent in the flexor hallucis longus and flexor digitorum longus tendons. 2. Synovial enhancement in a joint effusion about the tibiotalar joint concerning for septic arthritis. 3. No evidence of edie osteomyelitis. ACT 112: Negative or not required by law. Electronically signed by: Audie Brooke M.D. 05/03/2021 6:[address] 05/06/21 08:24 CT SCAN OF THE BRAIN WITHOUT IV CONTRAST CLINICAL HISTORY: Strokelike symptoms. COMPARISON STUDY: No priors. TECHNIQUE: Unenhanced axial CT scan of the brain is performed from the vertex to the skull base. A dose lowering technique was utilized adhering to the principles of ALARA. FINDINGS: Brain parenchyma: Right temporal encephalomalacia is consistent with a remote insult. Chronic lacunar infarcts are noted in the left caudate head, the left cerebellar hemisphere, and the left basal ganglia. There are age-related involutional changes noting mild to moderate patchy subcortical and periventricular microangiopathic change. There is no hemorrhage, mass effect, or evidence of acute territorial ischemia by CT criteria. Alvarenga-white matter differentiation is preserved. No extra-axial fluid collection is seen. Ventricles, sulci, cisterns: Prominent secondary to involutional change. Intracranial vasculature: There is atherosclerotic calcification of the cavernous carotid and vertebral arteries. Calvarium: Unremarkable. Sinuses and mastoids: The visualized paranasal sinuses are clear. The mastoid air cells are well pneumatized. Orbits: The bony orbits are grossly intact. There are bilateral ocular lens implants. IMPRESSION: There is no hemorrhage, mass effect, or evidence of acute territorial ischemia by CT criteria. ACT 112: Negative or not required by law. Electronically signed by: Donnie Reyes M.D. 05/06/2021 8:44 AM Head CTA 05/06/21 08:30 CT ANGIOGRAM OF THE BRAIN; CT ANGIOGRAM OF THE NECK CLINICAL HISTORY: Left-sided weakness. Stroke like symptoms. COMPARISON STUDY: Unenhanced CT of the brain performed concurrently on 05/06/2021. TECHNIQUE: Following the IV administration of 120 of Optiray 320, CT angiogram of the head and neck was performed from the aortic arch to the vertex. Images are reviewed in the axial, sagittal, and coronal planes. 3-D MIPS images are created and assessed. IV contrast was administered without complication. All measurements were calculated based on NASCET criteria. A dose lowering technique was utilized adhering to the principles of ALARA. The patient was scanned twice due to motion artifact. The CT angiogram of the neck is significantly motion compromised. 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 Chronic lacunar infarcts are noted in the left caudate head, the left cerebellar hemisphere, and the left basal ganglia. There are age-related involutional changes noting mild to moderate patchy subcortical and periventricular microangiopathic change. There is no evidence of hemorrhage, mass effect, or acute territorial ischemia noting angiographic phase technique. Alvarenga-white matter differentiation is preserved. No extra-axial fluid collection is seen.. The ventricles, sulci, and cisterns are prominent secondary to involutional change. Thoracic aorta: There is atherosclerotic calcification of the thoracic aorta. Visualized portions of the thoracic aorta are normal in caliber. The aortic arch demonstrates standard 3-vessel anatomy. Right carotid arterial system: The right common carotid artery is widely patent. There is advanced atherosclerotic plaque in the carotid bulb. This level significantly motion compromised. There is approximately 50-75% focal stenosis at the origin of the right internal carotid artery. The remainder of the internal carotid artery is patent, as is the right external carotid artery. Left carotid arterial system: The left common carotid artery is widely patent. There is advanced atherosclerotic plaque in the carotid bulb. This causes 50-75% focal stenosis at the origin of the left internal carotid artery. This is not well-visualized due to motion artifact. The remainder of the internal carotid artery is patent, as is the external carotid artery. Vertebral arteries: The vertebral arteries are patent bilaterally noting a right-sided dominance. Subclavian arteries: Widely patent bilaterally. Intracranial vasculature: There is atherosclerotic calcification of the cavernous carotid and vertebral arteries. The internal carotid arteries are patent at the skull base, as are the anterior and left middle cerebral arteries bilaterally. Suspect cut-off/focal occlusion of a branch of the M2 segment of the right middle cerebral artery in the anterior temporal fossa, best seen on image #116. The remainder of the right middle cerebral artery appears patent. The vertebrobasilar system and posterior cerebral arteries are patent. The right vertebral artery is dominant. There is no aneurysm is seen throughout the intracranial circulation. Jugular veins: Patent bilaterally. Dural sinuses: Patent. Lung apices: Emphysematous change is noted. Upper lobe lung parenchyma is otherwise clear as imaged noting significant motion artifact. Soft tissues: The visualized pharyngeal soft tissues are normal in appearance noting angiographic phase technique. The oropharyngeal airway appears widely patent. The salivary and thyroid glands are normal in appearance. No cervical lymphadenopathy is seen. Skeletal structures: The skeletal structures are osteopenic. The calvarium appears intact. The cervical spine is maintained noting multilevel spondylosis. No lytic or blastic lesion is seen. Orbits: The bony orbits are intact. Orbital contents are normal as visualized noting bilateral ocular lens implants. Sinuses and mastoids: There is trace mucosal thickening in the left maxillary antrum. The remaining paranasal sinuses are clear. The mastoid air cells are well pneumatized. IMPRESSION: 1. The CT angiogram of the neck is significantly motion compromised. 2. There is no evidence of hemorrhage, mass effect, or acute territorial ischemia noting angiographic phase technique. 3. Suspect cut-off/focal occlusion of an M2 branch of the right middle cerebral artery in the anterior temporal fossa. This is of indeterminant chronicity given the history of previous right temporal lobe stroke but may be acute. Clinical correlation will be essential. 4. Otherwise unremarkable CT angiogram of the brain. 5. There is stenosis at the origin of both internal carotid arteries, likely at least 50-75% bilaterally. This is difficult to evaluate due to significant motion artifact and calcified plaque. Ultrasound could be considered for reassessment. 6. Emphysema. ACT 112: Negative or not required by law. Electronically signed by: Donnie Reyes M.D. 05/06/2021 9:07 AM Neck CTA 05/06/21 08:30 CT ANGIOGRAM OF THE BRAIN; CT ANGIOGRAM OF THE NECK CLINICAL HISTORY: Left-sided weakness. Stroke like symptoms. COMPARISON STUDY: Unenhanced CT of the brain performed concurrently on 05/06/2021. TECHNIQUE: Following the IV administration of 120 of Optiray 320, CT angiogram of the head and neck was performed from the aortic arch to the vertex. Images are reviewed in the axial, sagittal, and coronal planes. 3-D MIPS images are created and assessed. IV contrast was administered without complication. All measurements were calculated based on NASCET criteria. A dose lowering technique was utilized adhering to the principles of ALARA. The patient was scanned twice due to motion artifact. The CT angiogram of the neck is significantly motion compromised. 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 Chronic lacunar infarcts are noted in the left caudate head, the left cerebellar hemisphere, and the left basal ganglia. There are age-related involutional changes noting mild to moderate patchy subcortical and periventricular microangiopathic change. There is no evidence of hemorrhage, mass effect, or acute territorial ischemia noting angiographic phase technique. Alvarenga-white matter differentiation is preserved. No extra-axial fluid collection is seen.. The ventricles, sulci, and cisterns are prominent secondary to involutional change. Thoracic aorta: There is atherosclerotic calcification of the thoracic aorta. Visualized portions of the thoracic aorta are normal in caliber. The aortic arch demonstrates standard 3-vessel anatomy. Right carotid arterial system: The right common carotid artery is widely patent. There is advanced atherosclerotic plaque in the carotid bulb. This level significantly motion compromised. There is approximately 50-75% focal stenosis at the origin of the right internal carotid artery. The remainder of the internal carotid artery is patent, as is the right external carotid artery. Left carotid arterial system: The left common carotid artery is widely patent. There is advanced atherosclerotic plaque in the carotid bulb. This causes 50-75% focal stenosis at the origin of the left internal carotid artery. This is not well-visualized due to motion artifact. The remainder of the internal carotid artery is patent, as is the external carotid artery. Vertebral arteries: The vertebral arteries are patent bilaterally noting a right-sided dominance. Subclavian arteries: Widely patent bilaterally. Intracranial vasculature: There is atherosclerotic calcification of the cavernous carotid and vertebral arteries. The internal carotid arteries are patent at the skull base, as are the anterior and left middle cerebral arteries bilaterally. Suspect cut-off/focal occlusion of a branch of the M2 segment of the right middle cerebral artery in the anterior temporal fossa, best seen on image #116. The remainder of the right middle cerebral artery appears patent. The vertebrobasilar system and posterior cerebral arteries are patent. The right vertebral artery is dominant. There is no aneurysm is seen throughout the intracranial circulation. Jugular veins: Patent bilaterally. Dural sinuses: Patent. Lung apices: Emphysematous change is noted. Upper lobe lung parenchyma is otherwise clear as imaged noting significant motion artifact. Soft tissues: The visualized pharyngeal soft tissues are normal in appearance noting angiographic phase technique. The oropharyngeal airway appears widely patent. The salivary and thyroid glands are normal in appearance. No cervical lymphadenopathy is seen. Skeletal structures: The skeletal structures are osteopenic. The calvarium appears intact. The cervical spine is maintained noting multilevel spondylosis. No lytic or blastic lesion is seen. Orbits: The bony orbits are intact. Orbital contents are normal as visualized noting bilateral ocular lens implants. Sinuses and mastoids: There is trace mucosal thickening in the left maxillary antrum. The remaining paranasal sinuses are clear. The mastoid air cells are well pneumatized. IMPRESSION: 1. The CT angiogram of the neck is significantly motion compromised. 2. There is no evidence of hemorrhage, mass effect, or acute territorial ischemia noting angiographic phase technique. 3. Suspect cut-off/focal occlusion of an M2 branch of the right middle cerebral artery in the anterior temporal fossa. This is of indeterminant chronicity given the history of previous right temporal lobe stroke but may be acute. Clinical correlation will be essential. 4. Otherwise unremarkable CT angiogram of the brain. 5. There is stenosis at the origin of both internal carotid arteries, likely at least 50-75% bilaterally. This is difficult to evaluate due to significant motion artifact and calcified plaque. Ultrasound could be considered for reassessment. 6. Emphysema. ACT 112: Negative or not required by law. Electronically signed by: Donnie Reyes M.D. 05/06/2021 9:07 AM Hospital Course (1) CVA (cerebral vascular accident): Acute left facial droop, eye deviation to the right, slurred speech and LUE weakness present noticed just after 0800. Last known well time was 0530. Stroke alert called and events as above. Possible R middle cerebral stroke on CTA, confirmed no history of prior stroke per outpatient [facility] records, per inpatient records, and per patient and her daughter Siri. Teleneurologist, Dr. Short felt there may be some acute on chronic stroke findings present and recommended immediate transfer to [facility] [place] for CT perfusion scan to determine the need for embolectomy. Daughter was updated and agrees with transfer. She was transferred to [facility] by [facility]S ground due to weather. (2) Septic arthritis of ankle and foot region: Was seen and eval at [place] [facility] - awaiting records, dx with GOUT and prescribed prednisone, indomethacin and keflex for ? cellulitis pt w/o improvement obtain CT R Foot/ankle-soft tissue swelling without any abscess or osteomyelitis RLE venous doppler-negative for any thrombosis ESR is high at 60 and CRP is high at 17 Colchicine was initially given and then discontinued MRI of the right ankle did show possible septic arthritis Ortho consulted and FNA performed, initial cultures growing staph aureus with pending sensitivities. Pain meds PRN Continues on vanc empirically. She underwent washout on 05/[address] Rey Lopez. Culture growing MRSA. Continues on Vanc--drain in place, surgical bandage intact. Continue pain control efforts. (3) Chest pain: Initially present on admission, currently denies. Has CAD with h/o stent CXR with evidence of pulm vasc congestion possible in setting of HTN Urgency on admission (192/73)-one dose of Lasix 10mg IV given on 05/02 resolved her symptoms Recently noted by outpatient record review to have same issue by outpatient c ardiologist, resolved with furosemide. Cycled troponin for completeness-these were unremarkable EKG unremarkable for acute ischemia Echo has been-EF 55 to 60%, there is moderate concentric LV hypertrophy with hypokinesis of the base lateral wall, left atrium is severely dilated, aortic valve is mildly calcified, mild valvular aortic stenosis, there is mild mitral regurgitation, mild tricuspid regurgitation and estimated pulmonary systolic pressure is 53 mmHg. Continue metoprolol, Entresto, ASA, atorvastatin, Xarelto Denies any more chest pain and/or palpitation (4) Atrial fibrillation: Chronic atrial fibrillation with rate control on Toprol-XL, chronically anticoagulated with rivaroxaban. Anticoagulation on hold in setting of upcoming procedure. Restarted on night of 05/05 by surgery. Held for only one day. She continues to remain in atrial fibrillation on telemetry. (5) CHF (congestive heart failure): Chronic heart failure with preserved ejection fraction she has exertional weakness/fatigue and exertional dyspnea ongoing. She is followed by [facility] cardiology and was last seen 02/2021. She notably uses Lasix as needed if she gets a "chest heaviness" she typically uses it a few times a week and this resolves the issue for her. She typically takes Lasix as needed, and is currently not examining is volume overloaded, Appears compensated (6) Insomnia: continue melatonin, trazodone, hydroxyzine per home regimen. (7) RLS (restless legs syndrome): cont mirapex per home regimen. (8) DVT prophylaxis: rivaroxaban Full code Dispo-to [facility] [facility] for "brain attack" and CT perfusion scan. Daughter Siri updated Stephanie Gaviria DO [facility] Hospitalist Total Time Total Time Spent Total Time Spent (In Minutes): 60 Discharge Plan Discharge Items Patient Disposition: Transfer Acute Care Hospital Reason For Visit: CHEST PAIN; R FOOT/ANKLE PAIN Discharge Diagnosis: Acute Condition on Discharge: Serious Activity: Per Instructions section Activity Comment: per receiving facility Non-emergency contact: Primary Care Provider Call non-emergency contact if: you have any medication questions, your symptoms worsen and your pain is not controlled Follow-up/Referrals: Jose Angel Reese M.D. [Primary Care Provider] - Diet: Nothing by Mouth Addtl Attending Provider Instructions: You are being transferred to [facility] for continued evaluation of stroke symptoms. Please follow-up with Dr. Lopez in 1-2 weeks for followup after ankle wash out. Staff at [facility] may need to contact his group regarding ongoing management of drain and wound as these instructions were not in the chart at time of discharge for acute stroke. Please remain non-weight bearing on the right leg until cleared by orthopedics. Please follow-up with your primary care provider within 1 week of discharge from tertiary care center. This is to review all medications and any changes and ensure you have appropriate followups, and that you are doing well after returning home. It was a pleasure taking care of you! Please call if you have any questions or problems. You can reach a [place] hospitalist on duty at [facility] 24 hours a day by calling [phone]. Take care of yourself. Stephanie Gaviria, DO [facility] Hospitalist Pending Studies at Discharge: No Stand-Alone Forms: [facility] Skilled Items Patient informed of condition?: Yes DNR: No Discharge Level of Care: Other Communicable Disease: No Discharge Prognosis: Stable Lines: Peripheral IV Urinary Catheter: No Medications and DC Order Prescriptions: Continued furosemide 40 mg Tablet 40 mg PO DAILY PRN (Reason: Edema) RF: 0 atorvastatin 40 mg tablet 40 mg PO HS RF: 0 venlafaxine 75 mg Capsule,Extended Release 24hr 75 mg PO DAILY RF: 0 cetirizine 10 mg Tablet 10 mg PO PM RF: 0 metoprolol succinate 50 mg Tablet Extended Release 24 Hr 125 mg PO DAILY RF: 0 aspirin [Aspir-81] 81 mg Tablet,Delayed Release (Dr/Ec) 81 mg PO DAILY RF: 0 levothyroxine 25 mcg Tablet 25 mcg PO DAILY RF: 0 Acidophilus Tablet 1,000 mmu cells PO BID RF: 0 trazodone 150 mg Tablet 150 mg PO HS RF: 0 esomeprazole magnesium 40 mg Capsule,Delayed Release(Dr/Ec) 40 mg PO DAILY RF: 0 pramipexole 0.25 mg Tablet 0.25 mg PO DAILY RF: 0 pramipexole 0.25 mg Tablet 0.5 mg PO HS RF: 0 montelukast 10 mg Tablet 10 mg PO DAILY RF: 0 hydroxyzine HCl 25 mg Tablet 25 mg PO HS RF: 0 coenzyme Q10 [CoQ-10] 100 mg Capsule 200 mg PO PM RF: 0 glucosamine-chondroitin [Osteo Bi-Flex] 250-200 mg Tablet 2 tab PO BIDM RF: 0 calcium carbonate-vitamin D3 [Calcium 500 + D (D3)] 500 mg-3.125 mcg (125 unit) Tablet 1 tab PO DAILY RF: 0 melatonin 5 mg Tablet 5 mg PO HS RF: 0 PreserVision AREDS 7,160 unit- 113 mg-100 unit Tablet 1 tab PO BID RF: 0 Xarelto 20 mg tablet 20 mg PO PM RF: 0 Entresto 24-26 mg tablet 1 tab PO BID RF: 0 Discharge Orders: Discharge Order (Routine); Ordered 05/06/21 Ordered By: Stephanie Gaviria Admission Data Admit Date/Time: 05/02/21 17:53 Attending Provider: Stephanie Gaviria Admit Provider: Mohamud Valencia Primary Care Provider: Jose Angel Reese Other Providers: [id number],[facility] ; [facility] ; Mohamud Valencia ; Dov Hood ; Aaron Lopez ; Jose Duckworth ; Berta Andres ; Chad Urrutia ; Breanna Montez ; Bro Richard ; Keenan Meza ; Jose Ty ; Alfredo Cárdenas ; Keenan Teague ; Matt Olguni ; Brian Sanchez ; Haaj Malloy ; Keith Boogie ; Breanna Trent ; Rosales Prescott ; Sonido Bennett ; Paige Ayers ; Costa Mosley ; Cheyanne Pagan ; Han Mason
[2021-05-06] MEDS ORDERED: VANCOMYCIN HCL 1,500 MG in SODIUM CHLORIDE 0.9% 500 ML IV SCH (10:00)
--- NOTE | 2021-05-06 10:25 | Orthopedic Progress Note ---
Date of Service May 06, 2021 Assessment & Plan (1) Acute right ankle pain: Plan: POD #1 s/p 1. Right ankle arthroscopy with irrigation and debridement, septic arthritis. 2. Major synovectomy of the right ankle. 3. Open irrigation and debridement of the flexor digitorum longus tendon. 4. Open irrigation and debridement, flexor hallucis longus tendon. 5. Tenosynovectomy of the flexor digitorum longus tendon. 6. Tenosynovectomy of the flexor hallucis longus tendon. Unfortunately, the patient is being transferred today secondary to CVA. Her hemovac was removed today with only 1 cc of drainage in the past 24 hours. Nothing in the cannister; only in the tubing. She is to be NWB on the RLE at all times until the wound begins to heal. Dressing change instructions given for Shantel. Daily dressing changes with removal of 4-6 inches of packing daily until the packing is completely removed. After that time, it may be changed QOD. Cultures showing MRSA. ABX choice will be made by ID. Continue IV Vanco. Patient will follow up with our [facility] office after discharge from the hospital. Admission and Anticipated Discharge Date Admission Date: May 02, 2021 Subjective Pain with the right ankle with manipulation for removal of the hemovac. No other ankle complaints. Physical Exam Constitutional: well developed and well nourished; no acute distress Musculoskeletal: Ankle: + surgical incision (Dressing C/D/I right ankle. ) and + surgical drain present (only 1 cc of drainage. hemovac removed today) Psychiatric: Orientation: alert and oriented x 3 (Wants to make sure someone has contacted her daughter.) Results & Data ([facility]) Vital Signs (Past 12 Hours) Vital Signs Temp Pulse Resp BP BP Pulse Ox 05/06/21 06:58 36.8 C 110 H 20 142/69 H 96 05/06/21 03:10 36.9 C 67 18 158/65 H 96 05/05/21 23:12 37.2 C 105 H 18 154/70 H 96
== END 2021-05-06 10:40 | disposition short-term general hospital (02) | DRG 492 ==
LOC: ED 12:54 → SUATTDRO 17:53 → EDINP 17:53 → 2N 05-03 00:35